=== PATIENT | male | born 1965 | race Caucasian/White ===

== ENCOUNTER 2020-09-19 14:51 | Outpatient (REF) | payer MEDICAID, SELFPAY | END 2020-09-19 14:52 | disposition home or self-care (01) | LOC: HO.LAB 14:51 | PROVIDERS: Visit Provider Internal Medicine | DX: Z20.828 Contact with and (suspected) exposure to other viral communicable diseases (principal) | CPT/HCPCS: 87635 ==

== ENCOUNTER 2024-05-29 09:14 | Outpatient (REF) | payer MEDICAID, SELFPAY ==
[2024-05-29 11:43] LABS: Alanine Aminotransferase 27 U/L (0-40); Albumin Level 4.3 g/dL (3.5-5.0); Alkaline Phosphatase 84 U/L (39-117); Anion Gap 12 (12-20); Aspartate Amino Transferase 23 U/L (5-37); Bilirubin Total 0.2 mg/dL (0.0-1.0); Blood Urea Nitrogen 11 mg/dL (9-16); Calcium 9.7 mg/dL (8.4-10.2); Carbon Dioxide 28 mmol/L (22-29); Chloride 103 mmol/L (96-108); Cholesterol 201 mg/dL (<200); Estimated Glomerular Filt Rate > 60; Glucose Random 186 mg/dL (60-115); HDL Cholesterol 40 mg/dL (>40); LDL Cholesterol Calculated 106 mg/dL (<100); Potassium 4.5 mmol/L (3.3-5.1); Sodium 138 mmol/L (135-145); Total Protein 7.7 g/dL (6.5-8.0); Triglycerides 277 mg/dL (<150)
[2024-05-29 11:46] LABS: TSH reflex Free T4 1.29 uIU/mL (0.32-4.0); Vitamin D 25-OH Total 23.3 ng/mL (>30)
[2024-05-29 11:54] LABS: Vitamin B12 914 pg/mL (200-900)
[2024-05-29 11:58] LABS: Estimated Average Glucose 146 mg/dL; Hemoglobin A1c % 6.7 % (<6.0)
[2024-05-29 15:05] LABS: Hepatitis A Antibody IgG REACTIVE (Nonreactive); ~Hepatitis A Antibody IgG 11.36 S/CO (0.00-0.99)
[2024-05-29 15:34] LABS: HBS Num1 71.46 mIU/mL (0-7.99); HBc Num1 0.13 S/CO (0.00-0.79); HIV AB/AG Nonreactive (Nonreactive); HIV Num 1 0.06 S/CO (0.00-0.99); Hepatitis B Core Antibody Nonreactive (Nonreactive); ~HepC Num1 0.07 S/CO (0.00-0.79); ~Hepatitis B Surface Antibody REACTIVE (Nonreactive); ~Hepatitis C Antibody Nonreactive (Nonreactive)
[2024-05-30 10:58] LABS: RPR Rapid Plasma Reagin NON-REACTIVE (NON-REACTIVE)
[2024-05-31 20:39] LABS: TS Negative Control Passed; TS Panel A 3; TS Panel B 0; TS Positive Control Passed; TSpotTB Negative (Negative)
== END 2024-05-29 09:15 | disposition home or self-care (01) ==
LOC: HO.HHCL 09:14
PROVIDERS: Visit Provider Emergency Medicine
DX: F11.20 Opioid dependence, uncomplicated (principal); E11.9 Type 2 diabetes mellitus without complications; I10 Essential (primary) hypertension
CPT/HCPCS: 36415; 80053; 80061; 82306; 82607; 83036; 84443; 86481; 86592; 86704; 86706; 86708; 86803; 87389

== ENCOUNTER 2024-06-20 12:05 | Emergency (ER) | payer MEDICAID, SELFPAY ==
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
[2024-06-20 12:20] VITALS: BP 204/132; PULSE 105; O2SAT 96
[2024-06-20 12:35] VITALS: BP 147/98; PULSE 99; RESP 18; TEMP 37; O2SAT 98; BMI 30.1
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
[2024-06-20 17:37] VITALS: BP 149/90; PULSE 72; RESP 16; TEMP 36.8; O2SAT 97
[2024-06-20 17:48] LABS: Appearance Urine Clear; Color Urine Yellow; Glucose Urine UA >=1000 mg/dL (Negative); Leukocyte Esterase Urine Negative (Negative); Nitrite Urine Negative (Negative); Specific Gravity - Urine 1.025 (1.005-1.025); UMIC TRIGGER UACC YES; Urine Blood Negative (Negative); Urine Ketones Trace mg/dL (Negative); Urine Protein Negative (Neg-Trace)
[2024-06-20] MEDS: Lidocaine 4 % Patch ADH..PATCH 1 PATCH TRANSDERMA (18:15)
[2024-06-20 18:17] VITALS: BP 159/91; PULSE 78; RESP 18; TEMP 36.6; O2SAT 99
[2024-06-20 18:31] LABS: Bacteria Urine None Seen (None Seen); Hyaline Casts Urine 0-2 /LPF (0-2); RBC Urine 0-2 /HPF (0-2); Squamous Epithelial Cell Urine 0-2 /HPF (0-2); WBC Urine 0-5 /HPF (0-5)
== END 2024-06-20 18:20 | disposition home or self-care (01) ==
PROVIDERS: Registered Nurse Emergency; Emergency Provider Emergency Medicine
DX: S80.02XA Contusion of left knee, initial encounter (principal); V73.6XXA Passenger on bus injured in collision with car, pick-up truck or van in traffic accident, initial encounter; R10.9 Unspecified abdominal pain; E11.9 Type 2 diabetes mellitus without complications; I10 Essential (primary) hypertension; Y93.89 Activity, other specified; Y92.414 Local residential or business street as the place of occurrence of the external cause; Y99.9 Unspecified external cause status
CPT/HCPCS: 73562; 81001; 99283

== ENCOUNTER 2024-06-22 07:53 | Outpatient (REF) | payer MEDICAID, SELFPAY ==
[2024-06-22 11:38] LABS: MANUAL DIFF FLAG NO
[2024-06-22 11:49] LABS: Basophils Percent Auto 0.4 % (0-2); Eosinophils Absolute Auto 0.1 X10*3/uL (0.0-0.4); Eosinophils Percent Auto 1.9 % (0-4); Hematocrit 40.8 % (42.0-52.0); Imm Gran Abs Auto 0.03 X10*3/uL (0.00-0.03); Imm Gran Pct Auto 0.4 % (0.0-0.4); Lymphocytes Absolute Auto 3.1 X10*3/uL (1.2-4.9); Mean Corpuscular HGB Conc 34.3 g/dl (31.0-36.0); Mean Corpuscular Hemoglobin 30.2 pg (27.0-33.0); Mean Corpuscular Volume 87.9 fL (80.0-98.0); Mean Platelet Volume 9.4 fL (9.4-12.4); Monocytes Absolute Auto 0.4 X10*3/uL (0.1-1.2); Neutrophils Absolute Auto 3.3 x10*3/uL (2.0-8.3); Neutrophils Percent Auto 47.3 % (45-73); Platelet Count 239 X10*3/uL (160-400); Red Blood Count 4.64 X10*6/uL (4.60-5.80); Red Cell Distribution Width 13.1 % (11.0-16.0)
== END 2024-06-22 07:54 | disposition home or self-care (01) ==
LOC: HO.HHCL 07:53
PROVIDERS: Visit Provider Nurse Practitioner Primary Care
DX: L74.9 Eccrine sweat disorder, unspecified (principal)
CPT/HCPCS: 36415; 85025

== ENCOUNTER 2024-09-24 18:17 | Outpatient (REF) | payer MEDICAID, SELFPAY ==
[2024-09-24 18:38] LABS: Appearance Urine Clear; Color Urine Yellow; Glucose Urine UA Negative (Negative); Leukocyte Esterase Urine Negative (Negative); Nitrite Urine Negative (Negative); PH 5.5 (5.0-9.0); Specific Gravity - Urine 1.015 (1.005-1.025); Urine Blood Negative (Negative); Urine Ketones Negative (Negative); Urine Protein Negative (Neg-Trace)
[2024-09-24 18:57] LABS: Bacteria Urine None Seen (None Seen); Hyaline Casts Urine 0-2 /LPF (0-2); RBC Urine 0-2 /HPF (0-2); Squamous Epithelial Cell Urine 0-2 /HPF (0-2); WBC Urine 0-5 /HPF (0-5)
== END 2024-09-24 18:18 | disposition home or self-care (01) ==
LOC: HO.HHCLNP 18:17
PROVIDERS: Visit Provider Nurse Practitioner Primary Care
DX: R31.0 Gross hematuria (principal)
CPT/HCPCS: 81001

== ENCOUNTER 2024-09-25 15:29 | Outpatient (REF) | payer MEDICAID, SELFPAY ==
--- NOTE | ~2024-09-25 | US_ITS ---
EXAMINATION: US TRIPLEX LOWER EXTREMITY, LEFT CLINICAL INFORMATION: Swelling and pain COMPARISON: None available. TECHNIQUE: Color-flow triplex imaging with spectral analysis and compression Doppler were performed on the left lower extremity. FINDINGS: Respiratory variation, normal compression and augmented flow are noted throughout the left lower extremity. The visualized common femoral vein, superficial femoral vein, profunda femoral vein, popliteal vein and midcalf peroneal and posterior tibial venous segments show no evidence of deep venous thrombosis. There is no Damon's cyst. US/US venous duplex LE LT IMPRESSION: No evidence of deep venous thrombosis involving the left lower extremity. Electronically signed by: Charly Ty MD 09/25/2024 04:16 PM EDT RP
== END 2024-09-25 15:30 | disposition home or self-care (01) ==
LOC: HO.US 15:29
PROVIDERS: PCP Nurse Practitioner Primary Care; Visit Provider Nurse Practitioner Primary Care
DX: M79.89 Other specified soft tissue disorders (principal); M79.605 Pain in left leg
CPT/HCPCS: 93971

== ENCOUNTER 2024-10-16 09:47 | Outpatient (REF) | payer MEDICAID, SELFPAY ==
--- NOTE | 2024-10-16 09:56 | EMG_ITS ---
Bilateral median and ulnar motor and sensory studies were performed. Bilateral radial and median and lateral antecubital brachial sensory studies were performed and paraspinal muscles were tested with a needle. IMPRESSION: 1. Mild bilateral median neuropathy across carpal tunnel. 2. Mild bilateral ulnar neuropathy across cubital tunnel. MD LUIS Bianchi/STEVEL / [id number]
== END 2024-10-16 09:48 | disposition home or self-care (01) ==
LOC: HO.NEURO 09:47
PROVIDERS: PCP Nurse Practitioner Primary Care; Visit Provider Nurse Practitioner Primary Care
DX: R20.0 Anesthesia of skin (principal); R20.2 Paresthesia of skin
CPT/HCPCS: 95886; 95913

== ENCOUNTER 2024-11-22 15:05 | Outpatient (REF) | payer MEDICAID, SELFPAY ==
[2024-11-22 16:43] LABS: Cholesterol 141 mg/dL (<200); HDL Cholesterol 39 mg/dL (>40); LDL Cholesterol Calculated 70 mg/dL (<100); Triglycerides 164 mg/dL (<150)
[2024-11-22 16:45] LABS: Prostate Specific Antigen 0.62 ng/mL (<0.05-4.0)
[2024-11-22 16:47] LABS: Vitamin D 25-OH Total 44.9 ng/mL (>30)
== END 2024-11-22 15:06 | disposition home or self-care (01) ==
LOC: HO.HHCL 15:05
PROVIDERS: Visit Provider Nurse Practitioner Primary Care
DX: Z12.5 Encounter for screening for malignant neoplasm of prostate (principal); E55.9 Vitamin D deficiency, unspecified; E78.5 Hyperlipidemia, unspecified; R31.0 Gross hematuria
CPT/HCPCS: 36415; 80061; 82306; 84153

== ENCOUNTER 2024-12-24 15:44 | Outpatient (AMB) | payer MEDICAID, SELFPAY ==
--- NOTE | 2024-12-24 15:46 | MHC.OFFVIS ---
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 EMG was done on 10/16/2024. Patient states ongoing numbness for about 5 years. He mentions that his whole hand gets numb not just his fingers, also both of his hands feel heavy when they are numb. Patient informs me that his right hand is worse than the left. Numbness is worse at night as per patient, however sometimes through out the day. He expresses that if he needs CTR surgery he would like to start with the left. IMPRESSION: 1. Mild bilateral median neuropathy across carpal tunnel. 2. Mild bilateral ulnar neuropathy across cubital tunnel. Commercial Food Instructor Required: Yes Commercial Food Instructor Language: Urban Designer Services: Commercial Food Instructor Present Commercial Food Instructor Name: AdanYANELI zhou/DAYA Information Interpreted: clinical only Allergies No Known Allergies [No Known Allergies*] Allergy (Verified 12/24/24 15:51) HPI HPI SUPERVISOR FRONT-B/L carpal tunnel syndrome: Details: Patient is a 59 year old right hand dominant male who presents today as a new patient for bilateral carpal tunnel syndrome. EMG was done on 10/16/2024. Patient states ongoing numbness for about 5 years. He mentions that his whole hand gets numb not just his fingers, also both of his hands feel heavy when they are numb. Patient informs me that his right hand is worse than the left. Numbness is worse at night as per patient, however sometimes through out the day. He expresses that if he needs CTR surgery he would like to start with the left. IMPRESSION: 1. Mild bilateral median neuropathy across carpal tunnel. 2. Mild bilateral ulnar neuropathy across cubital tunnel. [facility] Medical History Opiate use Diabetes HTN (hypertension) Social History (Updated 12/24/24 @ 15:54 by Thomas Parada) Alcohol intake: never Patient Tobacco Use Status: Current someday Tobacco user Cigarettes Per Day: 4 Current occupational status: retired Current occupation: right hand dominant Physical Exam Vital Signs: BMI result Body Mass Index 30.1 Extrem Other: Neuro: Normal sensation of the tips of all digits today No thenar or intrinsic wasting. Good APB muscle firing and good finger cross. Vascular: Capillary refill brisk. ROM: Patient can make a fist and extend all their digits. Skin: No lacerations or abrasions noted. General: No ecchymosis. No erythema or evidence of infection. [] Assessment & Plan Assessment & Plan (1) Bilateral carpal tunnel syndrome: Code(s): G56.03 - Carpal tunnel syndrome, bilateral upper limbs Category: Medical (2) Cubital tunnel syndrome, bilateral: Code(s): G56.23 - Lesion of ulnar nerve, bilateral upper limbs Category: Medical Plan 1. Cubital tunnel syndrome, right 2. Carpal tunnel syndrome, right Intermittent, daily, worse at night I educated the patient about the condition. I discussed both operative and nonoperative treatment options. The patient would like to proceed with surgery. The risks and benefits of operative treatment were discussed with the patient and the patient wishes to proceed with surgery. These risks include, but are not limited to, risk of damage to blood vessels, nerves, tendons, infection, recurrence, incomplete relief of preoperative symptoms, persistent pain, possible need for further surgery, and the risks associated with regional blocks and/or anesthesia. Plan is to take the patient to the operating room at some point in the next few weeks for the following procedures: 1. Right cubital tunnel release under general 2. Right carpal tunnel release under general All of the preoperative paperwork including the consent was discussed today. All of the patient's questions were answered in the clinic today. The patient understands that they will be in contact with our surgical services coordinator to discuss scheduling their procedure. Patient reports diabetes, last known A1c 6.4 but this was approximately 6 months ago, we will need new A1c prior to surgery Denies blood thinners, asthma, heart issues, lung issues, kidney issues, or current smoking. 3. Cubital tunnel syndrome, left 4. Carpal tunnel syndrome, left Patient states he would like to proceed with right-sided surgery prior to any operative intervention of the left Patient was educated that due to the fact he is undergoing general anesthesia for this case, he will be a minimum of 3 months before he can get signed up for left-sided surgery Patient was amenable to this plan Patient was informed that he will likely require preoperative follow-up because his surgery Will likely need more than 1 month patient was amenable this is plan Coding Level of Care Code New Pt Level 4 (94043) Diagnoses Bilateral carpal tunnel syndrome G56.03 Cubital tunnel syndrome, bilateral G56.23
[2024-12-24 15:54] VITALS: BMI 30.1
--- OUTSIDE RECORDS SUMMARY | 2024-12-24 19:37 | XMS_ITS | Encounter Summary ---
Author Organization [employer] Address [address] [place] [address] Care Team Providers Care Nanotechnology Technician Name Role Phone Lizzette Lacey ANITHA Primary Care Provider [phone] Reason for Visit * Reason Comments [facility] Recovery Supports Encounter Details Date Type Department Care Team (Late st Contact Info) Description 12/10/2024 Patient Outreach [facility] MEDICINE [address], [place] [id number] Vikash Beth [address] [place] [address] [facility] Recovery Supports Social History Tobacco Use Types Packs/Day Years Used Date Smoking Tobacco: Every Day Cigarettes Smokeless Tobacco: Never Depression Answer Date Recorded Patient Health Questionnaire-9 Score 12 09/25/2024 Patient Health Questionnaire-9 Score 12 09/25/2024 Last PHQ-9: Questionnaire Data Not on file 1 Housing Stability Answer Date Recorded What is your housing situation today? I do not have housing (Staying with others, in a hotel, in a snf, living outside on the street, on a beach, in a car, or in a park 09/12/[address] you li ve. Do you have problems with any of the following? Pests such as bugs, ants, or mice 09/12/2024 Food Insecurity Answer Date Recorded Within the past 12 months, y ou worried that your food would run out before you got money to buy more: Sometimes True 2023 Within the past 12 months,th e food you bought just didn't last and you didn't have enough money to get more: Sometimes True 09/12/2024 Transportation Answer Date Recorded In the past 12 months, has l ack of transportation kept you from medical appts, meetings, work or from getting things needed for daily living? Yes, it has kept me from medical appointments or getting medications. 09/12/2024 Utilities Answer Date Recorded In the past 12 months, has t he electric, gas, oil or water company threatened to shut off services in your home? No 09/12/2024 Depression Answer Date Recorded Patient Health Questionnaire-2 Score 4 09/25/2024 Internet Access Answer Date Recorded Internet Access Q1 Yes 09/12/2024 Internet Access Q2 Not on file 09/12/2024 Sex and Gender Information Value Date Recorded Sex Assigned at Male 09/27/2022 10:36 AM EDT Legal Sex Male 10:36 AM EDT Gender Identity Male 09/27/2022 10:36 AM EDT Sexual Orientation Don't know 09/27/2022 10 :36 AM EDT documented as of this encounter Progress Notes * Vikash Kirit - 12/10/2024 1:50 PM EST I met with Romeo today. Setting: in person at [facility] Recovery Wellness Goals worked on: Social Stability Action taken/next steps: Offered person centered recovery support and Attended alcohol and drug free activity Additional comments: Recovery Center Vikash Kirit documented in this encounter Plan of Treatment Upcoming Encounters Date Type Department Care Team (Late st Contact Info) Description 01/10/2025 1:00 PM EST Office Visit [address] [phone] Lizzette Lacey ANP [address] [place] [phone] 02/11/2025 1:00 PM EDT Clinical Support [address] [address] Jeniffer Fernandez RN documented as of this encounter Visit Diagnoses Not on filedocumented in this encounter Additional Health Concerns Assessment Noted Time PHQ-9 Depression Total Score: 12 024 9:19 AM EDT documented as of this encounter Care Teams Nanotechnology Technician Relationship Specialty Start Date End Date Lizzette Lacey ANP [address] [place] [phone] PCP - General Family Medicine 12/07/19 documented as of this encounter
--- OUTSIDE RECORDS SUMMARY | 2024-12-24 19:37 | XMS_ITS | Encounter Summary ---
Author Organization [facility] Address [address] [place] [address] Care Team Providers Care Yarn Rewinder Name Role Phone Sarita Wang Primary Care Provider [phone] Reason for Referral * Consultation (Routine) - Authorized Specialty Diagnoses / Procedures Referred By Sean aparicio Referred To Contact Hand Surgery Diagnoses Bilateral carpal tunnel syndrome Ulnar neuropathy of both upper extremities Sarita Wang ANP [address] [place] [address] Phone: tel: fax: [facility] Orthopedics [address] [place] [address] Phone: tel: Referral ID Status Reason Start Date Expiration Date Visits Requested Visits Authorized [id number] Authorized Specialty Services Required 12/05/2024 12/05/2025 6 6 Encounter Details Date Type Department Care Team (Late st Contact Info) Description 12/05/2024 Orders Only [facility] MEDICINE [address] [place] [address] Sarita Wang ANP [address] [place] [address] Bilateral carpal tunnel syndrome (Primary Dx); Ulnar neuropathy of both upper extremities Social History Tobacco Use Types Packs/Day Years [...] with others, in a hotel, in a group home, living outside on the street, on a [...] as of this encounter Progress Notes * ANITHA Sen - 12/05/2024 9:48 AM EST IMPRESSION: 1. Mild bilateral median neuropathy across carpal tunnel. 2. Mild bilateral ulnar neuropathy across cubital tunnel. Patient: Romeo Agarwal MR#: [id number] : 1965 Acct:[id number] Age/Sex: 59 / M ADM Date: 10/16/24 Loc: HO.NEURO Attending Dr: Sarita Wang NP Ordering Physician: SARITA WANG NP Date of Service: 10/16/24 Procedure(s): NE electromyogram (EMG) Accession Number(s): [id number] cc: SARITA WANG [employer] Bilateral median and ulnar motor and sensory studies were performed. Bilateral radial and median and lateral antecubital brachial sensory studies were performed and paraspinal muscles were tested with a needle. IMPRESSION: 1. Mild bilateral median neuropathy across carpal tunnel. 2. Mild bilateral ulnar neuropathy across cubital tunnel. MD LUIS Bianchi/DESHAUN documented in this encounter Plan of Treatment Upcoming Encounters Date Type Department Care Team (Late st Contact Info) Description 01/10/2025 1:00 PM EST Office Visit [address] [phone] Sarita aWng ANP [address] [place] [phone] 02/11/2025 1:00 PM EDT Clinical Support [address] [address] Jeniffer Fernandez, RN Scheduled Referrals Name Type Priority Associated Diagnoses Orde r Schedule Referral to Hand Surgery Outpatient Referral Routine Bilateral carpal tunnel syndrome Ulnar neuropathy of both upper extremities Expected: 12/05/2024 (Approximate), Expires: 12/05/2025 documented as of this encounter Visit Diagnoses Diagnosis Bilateral carpal tunnel syndrome- Primary Carpal tunnel syndrome Ulnar neuropathy of both upper extremities documented in this encounter Additional Health Concerns Assessment Noted Time PHQ-9 Depression Total Score: 12 024 9:19 AM EDT documented as of this encounter Care Teams Yarn Rewinder Relationship Specialty Start Date End Date Sarita Wang ANP [address] [place] [phone] PCP - General Family Medicine 12/07/19 documented as of this encounter
--- OUTSIDE RECORDS SUMMARY | 2024-12-24 19:37 | XMS_ITS | Encounter Summary ---
Author Organization [employer] [facility] Address [address] 7[address] [place] [address] Care Team Providers Care Script Developer Name Role Phone Lizzette Lacey Primary Care Provider [phone] Encounter Details Date Type Department Care Team (Late st Contact Info) Description 12/07/2024 Telephone [facility] [address] [place], [place] [phone] Lizzette Lacey ANP [address] [place], [place] [phone] Social History Tobacco Use Types Packs/Day Years [...] with others, in a hotel, in a fci, living outside on the street, on a [...] AM EDT documented as of this encounter Plan of Treatment Upcoming Encounters Date Type Department Care Team (Late st Contact Info) Description 01/10/2025 1:00 PM EST Office Visit [address] [address] Lizzette Lacey ANP [address] [place] [phone] 02/11/2025 1:00 PM EDT Clinical Support [address] [address] Jeniffer Fernandez RN documented as of this encounter Visit Diagnoses Not on filedocumented in this encounter Additional Health Concerns Assessment Noted Time PHQ-9 Depression Total Score: 12 024 9:19 AM EDT documented as of this encounter Care Teams Script Developer Relationship Specialty Start Date End Date Lizzette Lacey ANP [address] [place] [phone] PCP - General Family Medicine 12/07/19 documented as of this encounter
--- OUTSIDE RECORDS SUMMARY | 2024-12-24 19:37 | XMS_ITS | Encounter Summary ---
Author Organization [employer] [facility] Address [address] [place] [address] Care Team Providers Care Transverse Abdominal Muscle Surgeon Name Role Phone Lizzette Lacey ANITHA Primary Care Provider [phone] Reason for Visit * Reason Onset Date Comments Med Refill 11/30/2024 Encounter Details Date Type Department Care Team ([facility] st Contact Info) Description 11/30/2024 Refill [facility] [address] [place] [address] Jeniffer Fernandez RN Uncomplicated opioid dependence (CMS/HCC) Social History Tobacco Use Types Packs/Day Years [...] with others, in a hotel, in a care home, living outside on the street, on [...] Description 01/10/2025 1:00 PM EST Office Visit [address] [address] Lizzette Lacey ANP [address] [place] [address] 02/11/2025 1:00 PM EDT Clinical Support [address] [address] Jeniffer Fernandez RN documented as of this encounter Visit Diagnoses Diagnosis Uncomplicated opioid dependence (CMS/HCC) documented in this encounter Additional Health Concerns Assessment Noted Time PHQ-9 Depression Total Score: 12 024 9:19 AM EDT documented as of this encounter Care Teams Transverse Abdominal Muscle Surgeon Relationship Specialty Start Date End Date Lizzette Lacey ANP [address] [place] [phone] PCP - General Family Medicine 12/07/19 documented as of this encounter
--- OUTSIDE RECORDS SUMMARY | 2024-12-24 19:37 | XMS_ITS | Encounter Summary ---
Author Organization [employer] [facility] Address [address] 7[address] [place] [address] Care Team Providers Care Glass Pulverizer Equipment Operator Name Role Phone Lizzette Lacey ANITHA Primary Care Provider Encounter Details Date Type Department Care Team (Late st Contact Info) Description 12/05/2024 Telephone [facility] [address] [place] [address] Vanessa Mcdermott RN Social History Tobacco Use Types Packs/Day Years [...] with others, in a hotel, in a residential, living outside on the street, on a [...] AM EDT documented as of this encounter Miscellaneous Notes * Telephone Encounter - Vanessa Mcdermott RN - 12/05/2024 10:12 AM EST Call placed to patient. 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 Informed patient that his PCP sent a referral to a hand specialist. All questions answered. Patient verbalizes understanding and agreement with plan of care at this time. [employer] interpretor [place] Cristian [id number] ----- Message from Lizzette Lacey sent at 12/05/2024 9:51 AM EST ----- Please let pt know, am referring him to hand specialist for eval/treatment for his hand numbness and pain. 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 This is compression of 2 different nerves in his wrists that are consistent with his symptoms. documented in this encounter Plan of Treatment Upcoming Encounters Date Type Department Care Team (Late st Contact Info) Description 01/10/2025 1:00 PM EST Office Visit [facility] [address] [place] [phone] Lizzette Lacey ANP [address] [place] [address] 02/11/2025 1:00 PM EDT Clinical Support [address] [address] Jeniffer Fernandez, RN documented as of this encounter Visit Diagnoses Not on filedocumented in this encounter Additional Health Concerns Assessment Noted Time PHQ-9 Depression Total Score: 12 024 9:19 AM EDT documented as of this encounter Care Teams Glass Pulverizer Equipment Operator Relationship Specialty Start Date End Date Lizzette Lacey ANP [address] [place] [address] PCP - General Family Medicine 12/07/19 documented as of this encounter
--- OUTSIDE RECORDS SUMMARY | 2024-12-24 19:38 | XMS_ITS | Encounter Summary ---
Author Organization [employer] [facility] Address [address]t [place] [address] Care Team Providers Care Human Services Supervisor Name Role Phone Lizzette Lacey Primary Care Provider [phone] Encounter Details Date Type Department Care Team (Late st Contact Info) Description 11/09/[address] [facility] [address] [place] [address] Genie Jimenez LPN Social History Tobacco Use Types Packs/Day Years Used Date Smoking Tobacco: Never Assessed Sex and Gender Information Value Date Recorded Sex Assigned at Male 09/27/2022 10:36 AM EDT Legal Sex Male 10:36 AM EDT Gender Identity Male 09/27/2022 10:36 AM EDT Sexual Orientation Don't know 09/27/2022 10 :36 AM EDT documented as of this encounter Plan of Treatment Upcoming Encounters Date Type Department Care Team (Late st Contact Info) Description 01/10/2025 1:00 PM EST Office Visit [address] [address] Lizzette Lacey ANP [address] [place] [address] 02/11/2025 1:00 PM EDT Clinical Support [address] [address] Jeniffer Fernandez RN documented as of this encounter Visit Diagnoses Not on filedocumented in this encounter Care Teams Human Services Supervisor Relationship Specialty Start Date End Date Lizzette Lacey ANP [address] [place] [phone] PCP - General Family Medicine 12/07/19 documented as of this encounter
--- OUTSIDE RECORDS SUMMARY | 2024-12-24 19:38 | XMS_ITS | Encounter Summary ---
Author Organization [employer] [facility] Address [address] 7t [place] [address] Care Team Providers Care Jigmaker Name Role Phone Lizzette Lacey Primary Care Provider [phone] Encounter Details Date Type Department Care Team (Late st Contact Info) Description 04/04/2023 Orders Only [facility] [address] [place] [address] Odalis Kitchen LPN Social History Tobacco Use Types Packs/Day [...] Description 01/10/2025 1:00 PM EST Office Visit [address] [address] Lizzette Lacey ANP [address] [place] [address] 02/11/2025 1:00 PM EDT Clinical Support [facility] [address] [place] [phone] Jeniffer Fernandez RN documented as of this encounter Visit Diagnoses Not on filedocumented in this encounter Care Teams Jigmaker Relationship Specialty Start Date End Date Lizzette Lacey ANP [address] [place] [phone] PCP - General Family Medicine 12/07/19 documented as of this encounter
--- OUTSIDE RECORDS SUMMARY | 2024-12-24 19:38 | XMS_ITS | Encounter Summary ---
Author Organization [email or web address] [facility] Address [address] 7t [place] [address] Care Team Providers Care Firebreak Cutter Name Role Phone Lizzette Lacey Primary Care Provider [phone] Reason for Visit * Reason Comments Med Refill Encounter Details Date Type Department Care Team (Late st Contact Info) Description 07/20/2024 Refill [facility] [address] [place] [address] [phone] Francheska Boyer MD [address] [place] [address] [phone] Opioid type dependence, continuous (CMS/[facility]) Social History Tobacco Use Types Packs/Day Years Used Date Smoking Tobacco: Every Day Cigarettes Smokeless Tobacco: Never Depression Answer Date Recorded Patient Health Questionnaire-9 Score 10 07/09/2024 Patient Health Questionnaire-9 Score 10 07/09/2024 Last PHQ-9: Questionnaire Data Not on file 0 07/09/2024 Depression Answer Date Recorded Patient Health Questionnaire-2 Score 4 07/09/2024 Sex and Gender Information Value Date Recorded Sex Assigned at Male 09/27/2022 10:36 AM EDT Legal Sex Male 10:36 AM EDT Gender Identity Male 09/27/2022 10:36 AM EDT Sexual Orientation Don't know 09/27/2022 10 :36 AM EDT documented as of this encounter Plan of Treatment Upcoming Encounters Date Type Department Care Team (Late st Contact Info) Description 01/10/2025 1:00 PM EST Office Visit [facility] [address] [place] [phone] Lizzette Lacey ANP [address] [place] [phone] 02/11/2025 1:00 PM EDT Clinical Support [facility] [address] [place] [address] Jeniffer Fernandez RN documented as of this encounter Visit Diagnoses Diagnosis Opioid type dependence, continuous (CMS/HCC) Opioid type dependence, continuous documented in this encounter Additional Health Concerns Assessment Noted Time PHQ-9 Depression Total Score: 10 024 2:58 PM EDT documented as of this encounter Care Teams Firebreak Cutter Relationship Specialty Start Date End Date Lizzette Lacey ANP [address] [place] [address] PCP - General Family Medicine 12/07/19 documented as of this encounter
--- OUTSIDE RECORDS SUMMARY | 2024-12-24 19:38 | XMS_ITS | Clinical Summary ---
Author Organization [facility] Address [address] [facility] 7t [place] [address] Care Team Providers Care Slab Puller Name Role Phone Sarita Wang ANITHA Primary Care Provider [phone] Allergies Active Allergy Reactions Criticality Noted Date Comments Shellfish Allergy 08/11/2021 Medications * This document contains information received from the source organization and may not represent a complete record from that organization. famotidine (Pepcid) 20 MG tabletIndications :Heartburn TAKE 1 TABLET BY MOUTH EVERY DAY 90 tablet 1 023 Active fluticasone (Flonase) 50 MCG/ACT nasal sprayIndications: Non-seasonal allergic rhinitis due to other allergic trigger USE 2 SPRAYS IN EACH NOSTRIL EVERY DAY 48 g 1 023 Active naloxone (Narcan) 4 mg/0.1 mL nasal sprayIndications: Opioid type dependence, continuous (CMS/HCC) Administer 1 spray (4 mg) into affected nostril(s) if needed for opioid reversal. May repeat every 2-3 minutes if needed, alternating nostrils, until medical assistance becomes available. 2 each 024 2024 Active Blood Pressure kit 1 each 2 times daily. 1 kit 024 2024 Active buprenorphine-nal oxone (Suboxone) 12-3 MG per sublingual filmIndications:O pioid type dependence, continuous (CMS/HCC) Place 1 Film under the tongue Once per day for 7 days. Do not start before May 24, 2024. 7 Film 024 Active FREESTYLE LITE test stripIndications: Type 2 diabetes mellitus without complication, without long-term current use of insulin (CMS/HCC) Use to test blood sugar 3 times daily 100 each 12 024 2024 Active Blood Glucose Monitoring Suppl (FreeStyle Buffalo Lite) w/Device kitIndications:Ty pe 2 diabetes mellitus without complication, without long-term current use of insulin ([facility]) Use to test blood sugar 3 times daily 1 kit Active buprenorphine ER (Sublocade) 100 mg/0.5mL injectionIndicati ons:Uncomplicated opioid dependence ([facility]) Inject 0.5 mL (1 each) under the skin every month to absorb continually. 0.5 mL 5 024 2024 Active aspirin 81 MG EC tabletIndications :Cardiovascular event risk,Dyslipidemia Take 1 tablet (81 mg) by mouth Once per day. 90 tablet 1 024 2024 Active Alcohol Swabs (Alcohol Prep) 70 % padsIndications:T ype 2 diabetes mellitus without complication, without long-term current use of insulin ([facility]) USE DIRECTED TO TEST BLOOD SUGAR THREE TIMES DAILY 100 each 5 Active TRUEplus Lancets 33G miscIndications:T ype 2 diabetes mellitus without complication, without long-term current use of insulin ([facility]) USE DIRECTED TO TEST BLOOD SUGAR THREE TIMES DAILY 100 each 5 Active atorvastatin (Lipitor) 20 MG tabletIndications :Hyperlipidemia, unspecified hyperlipidemia type Take 1 tablet (20 mg) by mouth Once per day. 90 tablet 1 Active prazosin (Minipress) 1 MG capsuleIndication s:Nightmare TAKE 1 TO 2 CAPSULES BY MOUTH AT BEDTIME 90 capsule 1 024 Active metFORMIN XR (Glucophage-XR) 500 MG 24 hr tabletIndications :Hypertension associated with diabetes ([facility]/HCC) ([facility]) Take 2 tablets (1,000 mg) by mouth with evening meal. Do not crush, chew, or split. 180 tablet 1 Active psyllium (Metamucil Free & Natural) 43 % powderIndications :Constipation, unspecified constipation type 1 tsp TID in water, increase as tolerated up to 1 TBL twice daily 538 g 5 024 Active Buprenorphine HCl-Naloxone HCl (Suboxone) 8-2 MG SL filmIndications:U ncomplicated opioid dependence ([facility]) Place 1 Film under the tongue if needed each day for withdrawal for up to 28 days. 28 Film 025 2024 Active Buprenorphine HCl-Naloxone HCl (Suboxone) 8-2 MG SL filmIndications:U ncomplicated opioid dependence (CMS/HCC) Place 1 Film under the tongue if needed each day for withdrawal for up to 28 days. 28 Film 024 2024 Discontinued(R eorder (will not trigger notification to Pharmacy)) Active Problems Problem Noted Date Diagnosed Date Ulnar neuropathy of both upper extremities 12/05 Bilateral carpal tunnel syndrome 12/05/2024 Anxiety 06/21/2024 Assessment & Plan (09/25/2024 9:38 AM EDT): During IBH Consult Romeo presenting with excessive worry/anxiety, difficulty controlling worry, and anxiety/worry associated to restlessness and/or feeling keyed-up/On edge , easily fatigued , difficulty concentrating and/or mind going blank , irritability, muscle tension , and sleep disturbance difficulty falling asleep and difficulty staying asleep ; for a period of 0-6 mo, for most or all symptoms in the context of financial concern and housing. Romeo carries a diagnosis for Substance Use Disorder. Reported increase of anxiety and not being able to self-regulate. We practiced breathing exercises during session and made recommendations about anxiety. Romeo is currently living with his uncle. Reports he applied to low-income housing and is currently on wait list. During today's consult Romeo was engaged with active, reflective listening and validation of emotions. Reviewed and assessed for risk, current stressors and protective factors. Romeo will continue OP therapy services with [facility] (his next appt will be on 09/26); pt will request referral for psychiatry within [facility]. clinician will be available if needed during next medical appointment. Assessment & Plan (06/26/2024 3:19 PM EDT): During IBH Consult Romeo presenting with depressed mood, loss of interests/pleasure , changes in sleep difficulty staying asleep , change in appetite or weight overeating, psychomotor retardation, trouble concentrating, fatigue/loss of energy, inappropriate guilt , hopelessness and excessive worry/anxiety, difficulty controlling worry, restless/keyed up/On edge, easily fatigued, difficulty concentrating/Mind going blank , irritability, and sleep disturbance difficulty staying asleep ; for a period of 0-6 mo, for all symptoms in the context of financial concern, employment concern, and being released from senior care two months ago. Romeo is having a difficult time transitioning to the community after being incarcerated. He carries a diagnosis for Substance Use Disorder and is currently engaged with [facility] (Dr. Ríos). Romeo stays in a residential program with [employer] and has no services in place. He identifies his children as main support and strength. During today's consult, Romeo was engaged with active, reflective listening and validation of emotions. Reviewed and assessed for risk, current stressors and protective factors. Romeo was given different options for MH services. He prefers to utilize [facility]/ [place] /OP clinic for walk-in appointments and follow-up with clinician during next medical appointment. PLAN: (check all that apply) New/Additional Services needed On-site non-integrated services Off-site services for Behavioral Health Integration Plan Internal Follow up with [facility] External [facility]-referred to [facility] their [facility] Patient Self Plan Patient to utilize skills provided in intervention , Patient to [facility] team as needed, Comply with medication , Patient to engage in OP therapy , and Patient to reach out to [facility] as needed Adjustment disorder with depressed mood 05/17/20 Assessment & Plan (07/09/2024 3:09 PM EDT): During IBH Consult Romeo presenting with depressed mood, loss of interests/pleasure , changes in sleep difficulty staying asleep , trouble concentrating, thoughts of worthlessness or guilt, fatigue/loss of energy, inappropriate guilt , hopelessness, difficulty concentrating; for a period of 0-6 mo, for all symptoms in the context of financial concern, employment concern, and being released from senior care two months ago. Romeo carries a diagnosis for Substance Use Disorder and is currently engaged with [facility] groups at [facility]. Romeo lives in a residential program with [employer]. Pt was able to connect with [facility]/[place] and requested MH services (OP therapy and medication management). During today's consult, Romeo was engaged with active, reflective listening and validation of emotions. Reviewed and assessed for risk, current stressors and protective factors. Romeo was given different options for MH services. Romeo will continue services with [facility], [facility] and [facility]. clinician will be available if needed during next medical appointment. PLAN: (check all that apply) Continue with current services (defined as services in the past 12 months) Behavioral Health Integration Plan Patient Self Plan Patient to utilize skills provided in intervention , Patient to reach out to [facility] team as needed, Comply with medication , Patient to engage in OP therapy , and Patient to reach out to [facility] as needed. Pt followed recommendations made during last visit and requested intake appointment at [facility]. He is now connected with therapist and psychiatry will follow services within [facility] per patient's report. Assessment & Plan (06/26/2024 3:19 PM EDT): During IB Consult Romeo presenting with depressed mood, loss of interests/pleasure , changes in sleep difficulty staying asleep , change in appetite or weight overeating, psychomotor retardation, trouble concentrating, fatigue/loss of energy, inappropriate guilt , hopelessness and excessive worry/anxiety, difficulty controlling worry, restless/keyed up/On edge, easily fatigued, difficulty concentrating/Mind going blank , irritability, and sleep disturbance difficulty staying asleep ; for a period of 0-6 mo, for all symptoms in the context of financial concern, employment concern, and being released from senior care two months ago. Romeo is having a difficult time transitioning to the community after being incarcerated. He carries a diagnosis for Substance Use Disorder and is currently engaged with [facility] (Dr. Ríos). Romeo stays in a residential program with [employer] and has no services in place. He identifies his children as main support and strength. During today's consult, Romeo was engaged with active, reflective listening and validation of emotions. Reviewed and assessed for risk, current stressors and protective factors. Romeo was given different options for MH services. He prefers to utilize [facility] /OP clinic for walk-in appointments and follow-up with clinician during next medical appointment. PLAN: (check all that apply) New/Additional Services needed On-site non-integrated services Off-site services for Behavioral Health Integration Plan Internal Follow up with [facility] External Self-referred to [facility] for their OP Clinic Patient Self Plan Patient to utilize skills provided in intervention , Patient to reach out to [facility] team as needed, Comply with medication , Patient to engage in OP BH therapy , and Patient to reach out to [facility] as needed Opioid dependence, uncomplicated 05/14/2024 Assessment & Plan (06/26/2024 3:19 PM EDT): During IBH Consult Romeo presenting with depressed mood, loss of interests/pleasure , changes in sleep difficulty staying asleep , change in appetite or weight overeating, psychomotor retardation, trouble concentrating, fatigue/loss of energy, inappropriate guilt , hopelessness and excessive worry/anxiety, difficulty controlling worry, restless/keyed up/On edge, easily fatigued, difficulty concentrating/Mind going blank , irritability, and sleep disturbance difficulty staying asleep ; for a period of 0-6 mo, for all symptoms in the context of financial concern, employment concern, and being released from senior care two months ago. Romeo is having a difficult time transitioning to the community after being incarcerated. He carries a diagnosis for Substance Use Disorder and is currently engaged with [facility] (Dr. Ríos). Romeo stays in a residential program with [employer] and has no services in place. He identifies his children as main support and strength. During today's consult, Romeo was engaged with active, reflective listening and validation of emotions. Reviewed and assessed for risk, current stressors and protective factors. Romeo was given different options for services. He prefers to utilize [facility]/ [place] /OP clinic for walk-in appointments and follow-up with clinician during next medical appointment. PLAN: (check all that apply) New/Additional Services needed On-site non-integrated services Off-site services for Behavioral Health Integration Plan Internal Follow up with [facility] External Self-referred to [facility] for their OP Clinic Patient Self Plan Patient to utilize skills provided in intervention , Patient to reach out to [facility] team as needed, Comply with medication , Patient to engage in OP BH therapy , and Patient to reach out to [facility] as needed Tobacco dependence 05/14/2024 Type 2 diabetes mellitus wit hout complication, without long-term current use of insulin 05/14/2024 Hypertension 05/14/2024 Encounters * This document contains information received from the source organization and may not represent a complete record from that organization. Date Type Department Care Team Description 12/10/2024 Patient Outreach [facility] [address] [place], [place] [address] [address] Vikash Beth Recovery Supports 12/07/2024 Telephone [facility] [place] [address] Sarita Wang ANP 12/05/2024 Telephone [facility] [address] [place] [phone] Vanessa Mcdermott RN 12/05/2024 Orders Only [facility] [address] [place], [place] [address] [address] Sarita Wang ANP Bilateral carpal tunnel syndrome (Primary Dx); Ulnar neuropathy of both upper extremities 11/30/2024 Refill [facility] [address] [place], [place] [address] [address] Jeniffer Fernandez RN Uncomplicated opioid dependence (CMS/HCC) 11/22/[address] [address] Arturo Wagner MA December recall 11/19/2024 1:00 PM EST Office Visit [facility] [address] [place], [place] [address] [address] Genaro Ríos MD Uncomplicated opioid dependence (CMS/HCC) (Primary Dx); Constipation, unspecified constipation type 11/19/2024 Telephone [facility] [address] [place], [place] [address] [address] Genaro Ríos MD Med Refill 11/19/2024 Patient Outreach [address] [address] Vikash Beth Recovery Supports 11/19/2024 Refill [facility] [address] [place], [place] [address] [address] Jeniffer Fernandez RN Uncomplicated opioid dependence (CMS/HCC) 11/19/2024 Travel 11/17/2024 Telephone [facility] [address] [place], [place] [address] [address] Cierra Mercado RN Medication Instructions 11/16/2024 Refill [facility] [address] [place] [phone] Sarita Wang ANP Type 2 diabetes mellitus without complication, without long-term current use of insulin (CMS/HCC) (Primary Dx); Hyperlipidemia, unspecified hyperlipidemia type; Nightmare; Hypertension associated with diabetes (CMS/HCC) ([facility]/HCC) 11/13/2024 Refill [facility] [address] [place] [address] Jeniffer Fernandez RN Uncomplicated opioid dependence ([facility]/HCC) 11/13/2024 Refill [facility] [address] [place] [address] Jeniffer Fernandez RN Uncomplicated opioid dependence ([facility]/HCC) 11/09/2024 Patient Outreach [facility] [address] [place] [address] Alyssa Bustamante Recovery Supports 11/06/2024 Refill [facility] [address] [place] [address] Sarita Wang ANP Type 2 diabetes mellitus without complication, without long-term current use of insulin ([facility]) 10/22/2024 1:45 PM EST Clinical Support [facility] [address] [place] [phone] Jeniffer Fernandez RN Uncomplicated opioid dependence ([facility]/HCC) (Primary Dx) 10/22/2024 Refill [facility] [address] [place] [phone] Jeniffer Fernandez RN Uncomplicated opioid dependence ([facility]/HCC) 10/22/2024 Refill [facility] [address] [place] [phone] Jeniffer Fernandez RN Uncomplicated opioid dependence ([facility]/HCC) 10/22/2024 Travel 10/04/2024 Patient Outreach [facility] [address] [place] [phone] Jovani Clancy 09/27/2024 11:30 AM EDT Clinical Support [facility] [address] [place] [phone] Garrett Roe RN Uncomplicated opioid dependence ([facility]/HCC) (Primary Dx) 09/27/2024 Refill [facility] [address] [place] [phone] Garrett Roe RN Uncomplicated opioid dependence ([facility]CC) 09/27/2024 Travel 09/24/2024 1:30 PM EDT Office Visit [facility] [address] [place] [address] Sarita Wang ANP Hypertension associated with diabetes (CMS/HCC) (CMS/HCC) (Primary Dx); Hypertension, unspecified type; Gross hematuria; Cardiovascular event risk; Dyslipidemia; Vitamin D deficiency; Screening for malignant neoplasm of colon; Encounter for immunization; Left leg swelling; Numbness and tingling in both hands; Constipation, unspecified constipation type 09/24/2024 Travel from Last 3 Months Immunizations Name Administration Dates Next Due Influenza injectable quadriv alent IIV4 with preservative 12/07/2019,11/23/2018 Influenza injectable quadrivalent preservative f ree 12/18/2020 Influenza, IIV3, injectable 11/23/2018 Influenza, seasonal, injectable, preservative fr ee 09/24/2024 Pneumococcal Polysaccharide PPSV23 12/18/2020 Tdap 01/15/2024,11/23/2018 Social History Tobacco Use Types Packs/Day Years Used Date Smoking Tobacco: Every Day Cigarettes Smokeless Tobacco: Never Tobacco Cessation:Ready to Q uit: Not Asked; Counseling Given: Not Answered Depression Answer Date Recorded Patient Health Questionnaire-9 Score 12 09/25/2024 Patient Health Questionnaire-9 Score 12 09/25/2024 Last PHQ-9: Questionnaire Data Not on file 1 Housing Stability Answer Date Recorded What is your housing situation today? I do not have housing (Staying with others, in a hotel, in a longterm, living outside on the street, on a [...] Don't know 09/27/2022 10 :36 AM EDT Last Filed Vital Signs Vital Sign Reading Time Taken Comments Blood Pressure 142/87 09/24/2024 1:54 PM EDT Pulse 105 09/24/2024 1:54 PM EDT Temperature 36.8 ??C (98.3 ??F) 09/24/2024 1:54 PM ED T Respiratory Rate 16 09/24/2024 1:54 PM EDT Oxygen Saturation 98% 09/24/2024 1:54 PM EDT Inhaled Oxygen Concentration - - Weight 92.4 kg (203 lb 9.6 oz) 09/24/2024 1:54 P M EDT Height 172.7 cm (5' 8 ) 09/24/2024 1:54 PM EDT Body Mass Index 30.96 09/24/2024 1:54 PM EDT Plan of Treatment Upcoming Encounters Date Type Department Care Team (Late st Contact Info) Description 01/10/2025 1:00 PM EST Office Visit [facility] [address] [place] [phone] Sarita Wang ANP [address] [place] [address] 02/11/2025 1:00 PM EDT Clinical Support [facility] [address] [place] [phone] Jeniffer Fernandez, RN Health Maintenance Due Date Last Done Comments CT Colonography 1964 Colonoscopy 1964 Colorectal Cancer Screening 1964 FIT DNA/Cologuard 1964 FIT 1964 FOBT 1964 Sigmoidoscopy 1964 Diabetes: Foot Exam 1974 Eye Exam 1974 Alcohol/Substance Use Screening 1976 Hepatitis A Vaccines (1 of 2 - Risk 2-dose series) 1983 Zoster Vaccines (1 of 2) 2014 Pneumococcal Vaccine: Pediatrics (0 to 5 Years) and At-Risk Patients (6 to 64 Years) (2 of 2 - PCV) 12/18/2021 12/18/2020 Diabetes: Urine Protein Screening 12/08/2022 12/08/2021, 12/21/2019 COVID-19 Vaccine ( season) 2024 Diabetes: Hemoglobin A1C 12/25/2024 024, 05/29/2024, 12/08/2021, Additional history exists Depression Monitoring (PHQ-9) 03/26/2025 09/25/2024, 09/25/2024 SDOH Screening 09/12/2025 09/12/2024 Depression Screening 09/25/2025 09/25/2024, 09/25/20 24 Tobacco Screening 11/19/2025 11/19/2024 Lipid Panel 11/22/2025 11/22/2024, 07/0 12/2023, 12/08/2021 DTaP/Tdap/Td Vaccines (3 - Td or Tdap) 01/15/2034 01/15/2024, 11/23/2018 RSV Patients and Patients Aged 60 years or older (1 - 1-dose 75+ series) 2039 HIV Screening Completed 05/29/2024, 12/08/2021 Hepatitis C Screening Completed 05/29/2024 Influenza Vaccine Completed 09/24/2024, , 12/07/2019, Additional history exists HIB Vaccines Aged Out No longer eligi ble based on patient's age to complete this topic HPV Vaccines Aged Out No longer eligi ble based on patient's age to complete this topic Hepatitis B Vaccines Aged Out No long er eligible based on patient's age to complete this topic IPV Vaccines Aged Out No longer eligi ble based on patient's age to complete this topic Meningococcal Vaccine Aged Out No janelle edilberto eligible based on patient's age to complete this topic RSV under 20 months Aged Out No longe r eligible based on patient's age to complete this topic Rotavirus Vaccines Aged Out No longer eligible based on patient's age to complete this topic Procedures Procedure Name Priority Date/Time Associated Diagnosis Comments PSA, TOTAL Routine 11/22/2024 3:08 PM EST Gross hematuria VITAMIN D,25-OH,TOTAL,IA Routine 11/22/2024 3:08 PM EST Vitamin D deficiency LIPID PANEL, STANDARD Routine 11/22/2024 3:08 PM EST Dyslipidemia POCT IZABELA-14 URINE DRUG SCREEN Routine 11/19/2024 1:21 PM EST Uncomplicated opioid dependence (CMS/HCC) POCT IZABELA-14 URINE DRUG SCREEN Routine 10/22/2024 1:22 PM EST Uncomplicated opioid dependence (CMS/HCC) POCT IZABELA-14 URINE DRUG SCREEN Routine 09/27/2024 11:41 AM EDT Uncomplicated opioid dependence (CMS/HCC) US VENOUS DUPLEX LE LT Routine 09/25/2024 3:39 PM EDT URINALYSIS, COMPLETE, WITH REFLEX TO CULTURE Routine 09/24/2024 2:31 PM EDT Gross hematuria POCT GLUCOSE Routine 09/24/2024 2:11 PM EDT Hypertension associated with diabetes (CMS/HCC) (CMS/HCC) POCT GLYCATED HEMOGLOBIN, TOTAL Routine 09/24/2024 2:10 PM EDT Hypertension associated with diabetes (CMS/HCC) (CMS/HCC) HEPATITIS C AB W/REFL TO HCV RNA, QN, PCR Routine 05/29/2024 9:16 AM EDT Opioid type dependence, continuous (CMS/HCC) HIV 1/2 ANTIGEN/ANTIBODY, FOURTH GENERATION W/RFL Routine 05/29/2024 9:16 AM EDT Opioid type dependence, continuous (CMS/HCC) ALBUMIN, RANDOM URINE W/CREATININE Routine 12/08/2021 9:38 AM EST from Last 3 Months or Most Recently Relevant to Health Maintenance Results * Vitamin D, 25-Hydroxy, Total, Immunoassay (11/22/2024 3:08 PM EST) Vitamin D 25-OH Total 44.9 >30 ng/mL [facility] Comment:Health Based Referen ce Values*< 20 ng/mL Eeyskiesb40-04 ng/mL Insufficient> 30 ng/mL Sufficient*Blake CENTENO. N Engl J Med. 2007;357:266-280Care must be taken in interpreting Vitamin D results fromdifferent laboratories and methodologies. Published datademonstrated that results from patients undergoinghemodialysis may show a negative bias when tested withvarious automated 25-OH vitamin D assays when compared toLC-MS/MS.When testing samples from patients whose predominant form ofVitamin D is Vitamin D2, such as patients receiving VitaminD2 supplementation, results that are subtherapeutic shouldbe confirmed with another method such as LC-MS/MS. Blood Venous blood specimen / Unknown 11/22/2024 3:08 PM EST 11/22/2024 3:56 PM EST [facility] LAB BLOOD ORDERABLES Final Resul t [facility] [address] [place] [phone] * PSA,Total (11/22/2024 3:08 PM EST) Prostate Specific Antigen 0.62 <0.05 - 4.0 ng/mL [facility] Comment:PSA methodology: Dimitris Lee i ChemiluminescentMicroparticle Immunoassay (CMIA) Blood Venous blood specimen / Unknown 11/22/2024 3:08 PM EST 11/22/2024 3:56 PM EST Sarita Wang ANP LAB BLOOD ORDERABLES Final Resul t Performing Organization Address [facility] de Phone Number [facility] [address] [place] [phone] * (ABNORMAL) Lipid Panel, Standard (11/22/2024 3:08 PM EST) Triglycerides 164(H) <150 mg/dL [facility] Comment:Desirable Triglyceri de: less than 150 mg/dLBorderline High Triglyceride 150-199 mg/dLHigh Triglyceride: 200-499 mg/dLVery High Triglyceride: greater than or equal to 5OO mg/dL Cholesterol 141 <200 mg/dL [facility] Comment:Desirable Cholestero l: less than 200 mg/dLBorderline High Cholesterol: 200-239 mg/dLHigh Cholesterol: greater than 239 mg/dL LDL Cholesterol Calculated 70 <100 mg/dL [facility] Comment:Desirable LDL: less than 100 mg/dLNear Optimal/Above Optimal LDL: 110- 129 mg/dLBorderline High LDL: 130-159 mg/dLHigh LDL: 160-189 mg/dLVery High LDL: greater than or equal to 190 mg/dL HDL Cholesterol 39(L) >40 mg/dL [facility] Comment:Desirable HDL: great er than 40 mg/dL Note: This HDL assay may give artificially low results in patients with liver disease. Blood Venous blood specimen / Unknown 11/22/2024 3:08 PM EST 11/22/2024 3:56 PM EST Sarita Wang ANP LAB BLOOD ORDERABLES Final Resul t Performing Organization Address [facility] Co de Phone Number [facility] [address] [place] [phone] * POCT IZABELA-14 Urine Drug Screen (11/19/2024 1:21 PM EST) Only the most recent of3 resultswithin the time period is included. THC Negative Cocaine Screen, Urine Negative Opiate Screen, Urine Negative Methamphetamine Screen Urine Negative Amphetamine Screen, Urine Negative Benzodiazepines Screen, Urine Negative Barbiturate Screen, Urine Negative Methadone Screen, Urine Negative Buprenophine Screen, Urine Positive TCA, Urine Negative MDMA Urine Negative ng/mL Oxycodone Screen, Urine Negative Phencyclidine (PCP), Urine Negative Propoxyphene, Urine Negative Fentanyl, Urine Negative Urine Urine specimen obtained by clean catch procedure / Unknown 11/19/2024 1:21 PM EST us Genaro Ríos MD POINT OF CARE TEST ENTER/EDIT OR DERABLES Final Result * US VENOUS DUPLEX LE LT (09/25/2024 3:39 PM EDT) Anatomical Region Laterality Modality Abdomen Ultrasound 09/25/2024 3:39 PM EDT Narrative 09/25/2024 4:19 PM EDT ? [facility] ?[address] ?[place] [address] ? Ultrasound Report ? Signed ? Patient: Romeo Agarwal ?MR#: [id number] ?? [id number] ? : 1965 ?Acct:[id number] ? Age/Sex: 59 / M ?ADM Date: 09/25/24 ? Loc: HO.US ? Attending Dr: Sarita Wang NP ? Ordering Physician: SARITA WANG NP ?? Date of Service: 09/25/24 ?? Procedure(s): US venous duplex LE LT ?? Accession Number(s): [id number] ? cc: SARITA WANG NP ? EXAMINATION: ?? US TRIPLEX LOWER EXTREMITY, LEFT ? CLINICAL INFORMATION: ?? Swelling and pain ? COMPARISON: ?? None available. ? TECHNIQUE: ?? Color-flow triplex imaging with spectral analysis and compression ?? Doppler were performed on the left lower extremity. ? FINDINGS: ?? Respiratory variation, normal compression and augmented flow are noted ?? throughout the left lower extremity. The visualized common femoral ?? vein, superficial femoral vein, profunda femoral vein, popliteal vein ?? and midcalf peroneal and posterior tibial venous segments show no ?? evidence of deep venous thrombosis. ? There is no Damon's cyst. ? US/US venous duplex LE LT ?? IMPRESSION: ?? No evidence of deep venous thrombosis involving the left lower ?? extremity. ? Electronically signed by: ??Charly Ty MD ??09/25/2024 04:16 PM EDT RP ? Dictated By: ?Charly Ty MD ? Signed By: ?<Electronically signed by Charly Ty MD in OV> ?09/25/24 1616 ? DD/ 1539 ? TD/TT: 09/25/24 1544 ? Sock Liner: ? Procedure Note Donotuseinterpreter, Image - 09/25/[address] [address] Ultrasound Report Signed Patient: Romeo AgarwalMR#: [id number] : 1965Acct:[id number] Age/Sex: 59 / MADM Date: 09/25/24 Loc: .US Attending Dr: Sarita Wang NP Ordering Physician: SARITA WANG NP Date of Service: 09/25/24 Procedure(s): US venous duplex LE LT Accession Number(s): [id number] cc: SARITA WANG NP EXAMINATION: US TRIPLEX LOWER EXTREMITY, LEFT CLINICAL INFORMATION: Swelling and pain COMPARISON: None available. TECHNIQUE: Color-flow triplex imaging with spectral analysis and compression Doppler were performed on the left lower extremity. FINDINGS: Respiratory variation, normal compression and augmented flow are noted throughout the left lower extremity. The visualized common femoral vein, superficial femoral vein, profunda femoral vein, popliteal vein and midcalf peroneal and posterior tibial venous segments show no evidence of deep venous thrombosis. There is no Damon's cyst. US/US venous duplex LE LT IMPRESSION: No evidence of deep venous thrombosis involving the left lower extremity. Electronically signed by: Charly Ty MD 09/25/2024 04:16 PM EDT Dictated By: Charly Ty MD Signed By: <Electronically signed by Charly Ty MD in OV> 09/25/24 1616 DD/ 1539 TD/TT: 09/25/24 1544 Sock Liner: us Sarita Wang ANP IMG US PROCEDURES Edited Result - Final * Urinalysis, Complete, with Reflex to Culture (09/24/2024 2:31 PM EDT) Color Urine Yellow [facility] Appearance Urine Clear [facility] PH 5.5 5.0 - 9.0 [facility] Glucose Urine UA Negative Negative mg/dL [facility] Urine Blood Negative Negative [facility] Specific [place] - Urine 1.015 1.005 - 1.025 [facility] Urine Protein Negative Neg-Trace mg/dL [facility] Urine Ketones Negative Negative mg/dL [facility] Nitrite Urine Negative Negative [facility] Leukocyte Esterase Urine Negative Negative [facility] RBC Urine 0-2 0 - 2 /HPF [facility] Urine WBC 0-5 0 - 5 /HPF [facility] Urine Squamous Epithelial Cell 0-2 0 - 2 /HPF [facility] Urine Bacteria None Seen None Seen [facility] Hyaline Casts, Urine 0-2 0 - 2 /LPF [facility] Urine 09/24/2024 2:31 PM EDT 09/24/2024 6:18 PM EDT Narrative [facility] - 09/24/2024 6:59 PM EDT Urine, Clean Catch us Sarita Wang ANP LAB URINE ORDERABLES Final Resul t [facility] [address] [place] [phone] * (ABNORMAL) POCT Glucose (09/24/2024 2:11 PM EDT) Glucose Blood, POC 139(A) 60 - 200 mg/dL QC Media Lot # [id number] Lot# Expiration Date Blood Capillary blood specimen / Unknown 09/24/2024 2:11 PM EDT us Sarita Wang ANP POINT OF CARE TEST ENTER/EDIT OR DERABLES Final Result * (ABNORMAL) POCT HGB A1C (09/24/2024 2:10 PM EDT) Hemoglobin A1C 7.0(A) 4.0 - 6.0 % QC Media Lot # [id number] Lot# Expiration Date [id number] Blood 09/24/2024 2:10 PM EDT [facility] POINT OF CARE TEST ENTER/EDIT OR DERABLES Final Result * Hepatitis C Antibody with Reflex to HCV, RNA, Quantitative, Real-Time PCR (05/29/2024 9:16 AM EDT) Pathologist [facility] Hepatitis C Antibody Nonreactive Nonreactive [facility] Comment:Antibodies to HCV no t detected; does not exclude early acuteHCV infection. Blood Venous blood specimen / Unknown 05/29/2024 9:16 AM EDT 05/29/2024 10:58 AM EDT Genaro Ríos MD LAB BLOOD ORDERABLES Final Resul t [facility] [address] [place] [address] [phone] * HIV-1/2 Antigen and Antibodies, Fourth Generation, with Reflexes (05/29/2024 9:16 AM EDT) Pathologist [facility] HIV AB/AG Nonreactive Nonreactive [facility] Comment:HIV-1 p24 Ag and/or HIV-1/HIV-2 Ab not detected.A test result that is nonreactive does not exclude thepossibility of exposure to or infection with HIV-1 and/orHIV-2. Nonreactive results in this assay for individualswith prior exposure to HIV-1 and/or HIV-2 may be due toantigen and antibody levels that are below the limit ofdetection of this assay.The [employer] HIV Ag/Ab Combo assay result andsupplemental assay results should be interpreted inconjunction with the patient's clinical presentation,history and other laboratory results. If the results areinconsistent with clinical evidence, additional testing issuggested to confirm the result. Blood Venous blood specimen / Unknown 05/29/2024 9:16 AM EDT 05/29/2024 10:58 AM EDT Genaro Ríos MD LAB BLOOD ORDERABLES Final Resul t [facility] [address] [place] [phone] * ALBUMIN, RANDOM URINE W/CREATININE (12/08/2021 9:38 AM EST) Microalbumin Urine 0.8 See Note: mg/dL [facility] Comment: Reference Range: ?? Reference Range Not established Microalb/Creat Ratio 6 <30 mcg/mg creat [facility] Comment: ?? The ADA defines abnormalities in albumin excretion as follows: ?? Albuminuria Category ?Result (mcg/mg creatinine) ?? Normal to Mildly increased ?? <30 Moderately increased ? 30-299 ?? Severely increased ? > OR = 300 ?? The ADA recommends that at least two of three specimens collected within a 3-6 month period be abnormal before considering a patient to be within a diagnostic category. Creatinine, Urine 138 20 - 320 mg/dL [facility] 12/08/2021 9:38 AM EST us Sarita WELSH LAB URINE ORDERABLES Final Resul t Performing Organization Address City/[facility] de Phone Number [facility] [address] from Last 3 Months or Most Recently Relevant to Health Maintenance Insurance [facility] C3 Care Teams Slab Puller Relationship Specialty Start Date End Date Sarita Wang ANP [address] [place] [phone] PCP - General Family Medicine 12/07/19
--- OUTSIDE RECORDS SUMMARY | 2024-12-24 19:38 | XMS_ITS | Encounter Summary ---
Author Organization [facility] Address [address] [facility] 7t [place] [address] Care Team Providers Care Voicer Name Role Phone Lizzette Lacey Primary Care Provider [phone] Encounter Details Date Type Department Care Team (Late st Contact Info) Description 02/02/2023 Orders Only [facility] [address] [place] [address] Odalis Kitchen LPN Social History Tobacco Use [...] Description 01/10/2025 1:00 PM EST Office Visit [address] [address] Lizzette Lacey ANP [address] [place] [phone] 02/11/2025 1:00 PM EDT Clinical Support [facility] [address] [place] [phone] Jeniffer Fernandez RN documented as of this encounter Visit Diagnoses Not on filedocumented in this encounter Care Teams Voicer Relationship Specialty Start Date End Date Lizzette Lacey ANP [address] [place] [phone] PCP - General Family Medicine 12/07/19 documented as of this encounter
== END 2024-12-24 16:07 | disposition home or self-care (01) ==
PROVIDERS: PCP Nurse Practitioner Primary Care
DX: G56.03 Carpal tunnel syndrome, bilateral upper limbs (principal); G56.23 Lesion of ulnar nerve, bilateral upper limbs
CPT/HCPCS: 99204

== ENCOUNTER → 2024-12-24 15:44 | Outpatient (BNVA) | payer MEDICAID, SELFPAY | PROVIDERS: PCP Nurse Practitioner Primary Care | DX: G56.03 Carpal tunnel syndrome, bilateral upper limbs (principal); G56.23 Lesion of ulnar nerve, bilateral upper limbs | CPT/HCPCS: 99212 ==

== ENCOUNTER 2025-09-23 13:31 | Outpatient (REF) | payer MEDICAID, SELFPAY ==
--- OUTSIDE RECORDS SUMMARY | 2025-09-23 13:00 | XMS_ITS | Encounter Summary ---
Author Organization [employer] Address [address] [facility] [address]t [place] [address] Care Team Providers Care Supervisor [employer] Name Role Phone Lizzette Lacey ANITHA Primary Care Provider [phone] Reason for Visit * Reason Comments OBAT Encounter Details Date Type Department Care Team (Latest Contact Info) Description 09/23/2025 1:00 PM EDT Office Visit [facility] MEDICINE [address] [place], [place] [phone] Genaro Ríos MD [address] [place], [place] [phone] Uncomplicated opioid dependence (CMS/HCC) (HCC) (Primary Dx) Social History Tobacco Use Types Packs/Day Years Used Date Smoking Tobacco: Every Day Cigarettes Smokeless Tobacco: Never Depression Answer Date Recorded Patient Health Questionnaire-9 Score 16 01/10/2025 Patient Health Questionnaire-9 Score 16 01/10/2025 Last PHQ-9: Questionnaire Data Not on file 0 01/10/2025 Housing Stability Answer Date Recorded What is your housing situation today? I do not have housing (Staying with others, in a hotel, in a fdc, living outside on the street, on a beach, in a car, or in a park 12/27/[address] you li ve. Do you have problems with any of the following? None of the above 12/27/2024 Food Insecurity Answer Date Recorded Within the past 12 months, y ou worried that your food would run out before you got money to buy more: Often true 12/27/2024 Within the past 12 months,th e food you bought just didn't last and you didn't have enough money to get more: Often true Transportation Answer Date Recorded In the past [...] Answer Date Recorded Patient Health Questionnaire-2 Score 5 01/10/2025 Internet Access Answer Date Recorded Internet Access [...] Care Team (Late st Contact Info) Description 11/18/2025 1:00 PM EST Office Visit [facility] MED[facility] [address] [place], [place] [phone] Genaro Ríos MD [address] [place] [address] documented as of this encounter Procedures Procedure Name Priority Date/Time Associated Diagnosis Comments POCT IZABELA-14 URINE DRUG SCREEN Routine 09/23/2025 1:20 PM EDT Uncomplicated opioid dependence (CMS/HCC) (HCC) documented in this encounter Results * (ABNORMAL) POCT IZABELA-14 Urine Drug Screen (09/23/2025 1:20 PM EDT) THC Negative Negative Cocaine Screen, Urine Negative Negative Opiate Screen, Urine Negative Negative Methamphetamine Screen Urine Negative Negative Amphetamine Screen, Urine Negative Negative Benzodiazepines Screen, Urine Negative Negative Barbiturate Screen, Urine Negative Negative Methadone Screen, Urine Negative Negative Buprenophine Screen, Urine Positive(A) Negative TCA, Urine Negative Negative MDMA Urine Negative Negative ng/mL Oxycodone Screen, Urine Negative Negative Phencyclidine (PCP), Urine Negative Negative Fentanyl, Urine Negative Negative Urine Urine specimen obtained by clean catch procedure / Unknown 09/23/2025 1:20 PM EDT Genaro Ríos MD POINT OF CARE TEST ENTER/EDIT OR DERABLES Final Result documented in this encounter Visit Diagnoses Diagnosis Uncomplicated opioid dependence (CMS/HCC) (HCC)- Primary documented in this encounter Additional Health Concerns Assessment Noted Time PHQ-9 Depression Total Score: 16 02/2 025 1:35 PM EST documented as of this encounter Care Teams Supervisor [employer] Relationship Specialty Start Date End Date Lizzette Lacey ANP [address] [place] [phone] PCP - General Family Medicine 12/07/19 documented as of this encounter
[2025-09-23 16:32] LABS: Alanine Aminotransferase 24 U/L (0-40); Albumin Level 4.4 g/dL (3.5-5.0); Alkaline Phosphatase 56 U/L (39-117); Anion Gap 12 (12-20); Aspartate Amino Transferase 23 U/L (5-37); Blood Urea Nitrogen 12 mg/dL (9-16); Calcium 9.1 mg/dL (8.4-10.2); Carbon Dioxide 28 mmol/L (22-29); Chloride 106 mmol/L (96-108); Estimated Glomerular Filt Rate > 60; Potassium 3.9 mmol/L (3.3-5.1); Sodium 142 mmol/L (135-145); Total Protein 6.9 g/dL (6.5-8.0)
--- OUTSIDE RECORDS SUMMARY | 2025-09-23 17:11 | XMS_ITS | Encounter Summary ---
Author Organization [employer] Address [address] [facility] [address] [address] [place] [address] Care Team Providers Care Jewelry Inspector Name Role Phone Lizzette Lacey Primary Care Provider [phone] Encounter Details Date Type Department Care Team (Latest Contact Info) Description 09/23/2025 Travel Social History Tobacco Use Types Packs/Day Years [...] with others, in a hotel, in a custodial, living outside on the street, on a [...] Description 11/18/2025 1:00 PM EST Office Visit [facility] [address] [place] [address] Genaro Ríos MD [address] [place] [address] documented as of this encounter Visit Diagnoses Not on filedocumented in this encounter Additional Health Concerns Assessment Noted Time PHQ-9 Depression Total Score: 16 025 1:35 PM EST documented as of this encounter Care Teams Jewelry Inspector Relationship Specialty Start Date End Date Lizzette Lacey ANP [address] [place] [phone] PCP - General Family Medicine 12/07/19 documented as of this encounter
--- OUTSIDE RECORDS SUMMARY | 2025-09-23 17:11 | XMS_ITS | Encounter Summary ---
Author Organization [employer] [facility] Address [address] [place] [address] 7t [place] [address] Care Team Providers Care Arabic Teacher Name Role Phone Lizzette Lacey Primary Care Provider [phone] Encounter Details Date Type Department Care Team (Late st Contact Info) Description 11/09/2022 Orders Only [facility] [address] [place] [phone] Genie Jimenez LPN Social History Tobacco Use [...] Description 11/18/2025 1:00 PM EST Office Visit [facility] [address] [place] [phone] Genaro Ríos MD [address] [place] [address] documented as of this encounter Visit Diagnoses Not on filedocumented in this encounter Care Teams Arabic Teacher Relationship Specialty Start Date End Date Lizzette Lacey ANP [address] [place] [address] PCP - General Family Medicine 12/07/19 documented as of this encounter
--- OUTSIDE RECORDS SUMMARY | 2025-09-23 17:11 | XMS_ITS | Encounter Summary ---
Author Organization [employer] Address [address] [facility] [place] [address] Care Team Providers Care Exceptional Student Education Teacher Name Role Phone Lizzette Lacey Primary Care Provider [phone] Reason for Visit * Reason Onset Date Comments Med Refill 09/19/2025 Encounter Details Date Type Department Care Team ([facility] st Contact Info) Description 09/19/2025 Refill [facility] [address] [place] [address] Jeniffer Fernandez RN Uncomplicated opioid dependence (CMS/HCC) (HCC) Social History Tobacco Use Types Packs/Day Years [...] with others, in a hotel, in a half-way, living outside on the street, on a [...] Description 11/18/2025 1:00 PM EST Office Visit [facility] [address] [place] [phone] Genaro Ríos MD [address] [place] [address] documented as of this encounter Visit Diagnoses Diagnosis Uncomplicated opioid dependence (CMS/HCC) (HCC) documented in this encounter Additional Health Concerns Assessment Noted Time PHQ-9 Depression Total Score: 16 025 1:35 PM EST documented as of this encounter Care Teams Exceptional Student Education Teacher Relationship Specialty Start Date End Date Lizzette Lacey ANP [address] [place] [phone] PCP - General Family Medicine 12/07/19 documented as of this encounter
--- OUTSIDE RECORDS SUMMARY | 2025-09-23 17:11 | XMS_ITS | Clinical Summary ---
Author Organization [employer] Address [address] [facility] 7t [place] [address] Care Team Providers Care Site Safety Coordinator Name Role Phone Lizzette Lacey Primary Care Provider Allergies Active Allergy Reactions Criticality Noted Date Comments Shellfish Allergy 08/11/2021 Medications * This document contains information received from the source organization and may not represent a complete record from that organization. fluticasone (Flonase) 50 MCG/ACT nasal sprayIndications: Non-seasonal allergic rhinitis due to other allergic trigger USE 2 SPRAYS IN EACH NOSTRIL EVERY DAY 48 g 1 02/03/20 23 Active buprenorphine-nal oxone (Suboxone) 12-3 MG per sublingual filmIndications:O pioid type dependence, continuous (CMS/HCC) (HCC) Place 1 Film under the tongue Once per day for 7 days. Do not start before May 24, 2024. 7 Film 05/24/20 24 Active Blood Glucose Monitoring Suppl (FreeStyle [place] Lite) w/Device kitIndications:Ty pe 2 diabetes mellitus without complication, without long-term current use of insulin (HCC) Use to test blood sugar 3 times daily 1 kit 06/21/20 24 Active Alcohol Swabs (Alcohol Prep) 70 % padsIndications:T ype 2 diabetes mellitus without complication, without long-term current use of insulin (HCC) USE DIRECTED TO TEST BLOOD SUGAR THREE TIMES DAILY 100 each 5 11/07/20 24 Active TRUEplus Lancets 33G miscIndications:T ype 2 diabetes mellitus without complication, without long-term current use of insulin (HCC) USE DIRECTED TO TEST BLOOD SUGAR THREE TIMES DAILY 100 each 5 11/07/20 24 Active prazosin (Minipress) 1 MG capsuleIndication s:Nightmare TAKE 1 TO 2 CAPSULES BY MOUTH AT BEDTIME 90 capsule 1 11/16/20 24 Active olmesartan-hydroC HLOROthiazide (BENIcar HCT) 20-12.5 MG tabletIndications :Hypertension associated with diabetes (HCC) Take 1 tablet by mouth Once per day. 90 tablet 3 01/10/20 25 2025 Active metFORMIN XR (Glucophage-XR) 500 MG 24 hr tabletIndications :Hypertension associated with diabetes (HCC) Take 2 tablets (1,000 mg) by mouth with breakfast and with evening meal. Do not crush, chew, or split. 360 tablet 1 01/10/20 25 Active psyllium (Metamucil Free & Natural) 43 % powderIndications :Constipation, unspecified constipation type 1 tsp TID in water, increase as tolerated up to 1 TBL twice daily 538 g 5 02/12/20 25 Active Aspirin Low Dose 81 MG EC tabletIndications :Cardiovascular event risk,Dyslipidemia TAKE 1 TABLET BY MOUTH EVERY DAY 90 tablet 1 04/04/20 25 Active atorvastatin (Lipitor) 20 MG tabletIndications :Hyperlipidemia, unspecified hyperlipidemia type TAKE 1 TABLET BY MOUTH EVERY DAY 90 tablet 1 07/01/20 25 Active famotidine (Pepcid) 20 MG tabletIndications :Heartburn TAKE 1 TABLET BY MOUTH ONCE DAILY NEEDED FOR HEARTBURN 90 tablet 1 07/01/20 25 Active Buprenorphine HCl-Naloxone HCl (Suboxone) 8-2 MG SL filmIndications:U ncomplicated opioid dependence (CMS/HCC) ([facility]) Place 1 Film under the tongue 2 times daily. 56 Film 2 09/19/20 25 2025 Active Buprenorphine HCl-Naloxone HCl (Suboxone) 8-2 MG SL filmIndications:U ncomplicated opioid dependence (CMS/HCC) ([facility]) Place 1 Film under the tongue 2 times daily. 56 Film 2 07/02/20 25 2024 Discontinued(R eorder (will not trigger notification to Pharmacy)) Active Problems Problem Noted Date Diagnosed Date Screen for colon cancer 02/07/2025 Overview (02/07/2025): CRC screening - he reports he got c-scope in 2019 when he was incarcerated in [place] (that residential has since closed). He was there [phone]. We will try to request these records. He does have constipation and requests fiber supplement. Hypertension associated with diabetes 01/10/2025 Ulnar neuropathy of both upper extremities 12/05 Bilateral carpal tunnel syndrome 12/05/2024 Anxiety 06/21/2024 Assessment & Plan (09/25/2024 9:38 AM EDT): During IB Consult Romeo presenting with excessive worry/anxiety, difficulty [...] Romeo will continue OP therapy services with [facility] (his next appt will be on 09/26); pt will request referral for psychiatry within [facility]. clinician will be available if needed during [...] concern, employment concern, and being released from detention two months ago. Romeo is having a [...] for MH services. He prefers to utilize [facility]/ [place] /OP clinic for walk-in appointments and follow-up with clinician during next medical appointment. PLAN: (check all that apply) New/Additional Services needed On-site non-integrated services Off-site services for Behavioral Health Integration Plan Internal Follow up with [facility] External Self-referred to [facility]/[place] for their OP Clinic Patient Self Plan Patient to utilize skills provided in intervention , Patient [facility] team as needed, Comply with medication , Patient to engage in OP BH therapy , and Patient to reach out to [facility] as needed Adjustment disorder with depressed mood [...] concern, employment concern, and being released from detention two months ago. Romeo carries a diagnosis for Substance Use Disorder and is currently engaged with OBAT groups at [facility]. Romeo lives in a residential program with [place]. Pt was able to connect with [facility]/[place] and requested MH services (OP therapy and medication management). During today's consult, Romeo was engaged with active, reflective listening and validation of emotions. Reviewed and assessed for risk, current stressors and protective factors. Romeo was given different options for MH services. Romeo will continue services with [facility], OBAT and [facility]. clinician will be available if needed during next medical appointment. PLAN: (check all that apply) Continue with current services (defined as services in the past 12 months) Behavioral Health Integration Plan Patient Self Plan Patient to utilize skills provided in intervention , Patient to [facility] team as needed, Comply with medication , Patient to engage in OP BH therapy , and Patient to reach out to [facility] as needed. Pt followed recommendations made during last visit and requested intake appointment at [facility]. He is now connected with therapist and psychiatry will follow services within [facility] per patient's report. Assessment & Plan (06/26/2024 [...] concern, employment concern, and being released from detention two months ago. Romeo is having a [...] options for services. He prefers to utilize [facility] /OP clinic for walk-in appointments and follow-up with clinician during next medical appointment. PLAN: (check all that apply) New/Additional Services needed On-site non-integrated services Off-site services for Behavioral Health Integration Plan Internal Follow up with [facility] External Self-referred to [facility] for their OP Clinic Patient Self Plan Patient to utilize skills provided in intervention , Patient to reach out to [facility] team as needed, Comply with medication , Patient to engage in OP therapy , and Patient to reach out to [facility] as needed Opioid dependence, uncomplicated ([facility]/HCC) 05/14 Assessment & Plan (06/26/2024 3:19 PM EDT): [...] concern, employment concern, and being released from detention two months ago. Romeo is having a [...] options for services. He prefers to utilize [facility]/ [place] /OP clinic for walk-in appointments and follow-up with clinician during next medical appointment. PLAN: (check all that apply) New/Additional Services needed On-site non-integrated services Off-site services for Behavioral Health Integration Plan Internal Follow up with [facility] External Self-referred to [facility]/[place] for their OP Clinic Patient Self Plan Patient to utilize skills provided in intervention , Patient to reach out to [facility] team as needed, Comply with medication , Patient to engage in OP therapy , and Patient to reach out to [facility] as needed Tobacco dependence 05/14/2024 Type 2 diabetes mellitus wit hout complication, without long-term current use of insulin 05/14/2024 Hypertension 05/14/2024 Encounters Date Type Department Care Team Description 09/23/2025 1:00 PM EDT Office Visit [facility] [address] [place] [address] Genaro Ríos MD Uncomplicated opioid dependence (CMS/HCC) (HCC) (Primary Dx) 09/23/2025 Orders Only [facility] [address] [place] [address] Genaro Ríos MD 09/23/2025 Travel 09/19/2025 Refill [facility] [address] [place] [address] Jeniffer Fernandez RN Uncomplicated opioid dependence ([facility]) ([facility]) 07/30/2025 Telephone [facility] [address] [place] [address] Lizzette Lacey ANP November recall 07/02/2025 3:00 PM EDT Office Visit [facility] [address] [place] [address] Genaro Ríos MD Uncomplicated opioid dependence ([facility]) 07/02/2025 Travel 07/01/2025 Refill [facility] [address] [place] [address] Jeniffer Fernandez RN Uncomplicated opioid dependence ([facility]) 07/01/2025 Telephone [facility] [address] [place] [address] Lizzette Lacey ANP 06/30/2025 Refill [facility] [address] [place] [address] Lizzette Lacey ANP Hyperlipidemia, unspecified hyperlipidemia type; Heartburn 06/28/2025 Telephone [facility] [address] [place] [address] Lizzette Lacey ANP chart prep 06/25/2025 Refill [facility] [address] [place] [address] Jeniffer Fernandez RN Uncomplicated opioid dependence ([facility]) 06/24/2025 Refill [facility] [address] [place] [address] Genaro Ríos MD Uncomplicated opioid dependence ([facility]) from Last 3 Months Immunizations Immunization Administration Dates Next Due Influenza injectable quadriv alent IIV4 with preservative 12/07/2019,11/23/2018 Influenza injectable quadrivalent preservative f ree 12/18/2020 Influenza, IIV3, injectable 11/23/2018 Influenza, seasonal, injectable, preservative fr ee 09/24/2024 Pneumococcal Conjugate PCV 20 01/10/2025 Pneumococcal Polysaccharide PPSV23 12/18/2020 Tdap 01/15/2024,11/23/2018 Social [...] with others, in a hotel, in a penitentiary, living outside on the street, on a [...] Sign Reading Time Taken Comments Blood Pressure 109/74 02/07/2025 1:44 PM EDT Pulse 103 02/07/2025 1:44 PM EDT Temperature 36.4 C (97.6 F) 02/07/2025 1:44 PM EDT Respiratory Rate 12 02/07/2025 1:44 PM EDT Oxygen Saturation 97% 02/07/2025 1:44 PM EDT Inhaled Oxygen Concentration - - Weight 89 kg (196 lb 3.2 oz) 02/07/2025 1:44 PM EDT Height 172.7 cm (5' 8 ) 02/07/2025 1:44 PM EDT Body Mass Index 29.83 02/07/2025 1:44 PM EDT Plan of Treatment Upcoming Encounters Date Type Department Care Team (Late st Contact Info) Description 11/18/2025 1:00 PM EST Office Visit [facility] [address] [place] [address] Genaro Ríos MD [address] [place] [address] Health Maintenance Due Date Last Done Comments CT Colonography 1964 Colonoscopy 1964 Colorectal Cancer Screening 1964 FIT DNA/Cologuard 1964 FIT 1964 FOBT 1964 Sigmoidoscopy 1964 Disability Screening 1964 Eye Exam 1974 Zoster Vaccines (1 of 2) 2014 Diabetes: Urine Protein Screening 12/08/2022 12/08/2021, 12/21/2019 Diabetes: Hemoglobin A1C 04/09/2025 025, 09/24/2024, 05/29/2024, Additional history exists Depression Monitoring 07/10/2025 01/10/2025, 025 COVID-19 Vaccine ( season) 2025 05/05/2021, 03/31/2021 Influenza Vaccine (#1) 2025 , 12/18/2020, 12/07/2019, Additional history exists Lipid Panel 11/22/2025 11/22/2024, 07/0 12/2023, 12/08/2021 SDOH Screening 12/27/2025 12/27/2024 Alcohol/Substance Use Screening 01/10/2026 01/10/2025 Diabetes: Foot Exam 01/10/2026 01/10/2025, Tobacco Screening 09/23/2026 09/23/2025 DTaP/Tdap/Td Vaccines (3 - Td or Tdap) 01/15/2034 01/15/2024, 11/23/2018 RSV Patients and Patients Aged 60 years or older (1 - 1-dose 75+ series) 2039 HIV Screening Completed 05/29/2024, 12/08/2021 Hepatitis C Screening Completed 05/29/2024 Pneumococcal Vaccine: 50+ Years Completed 01/10/2025, 12/18/2020 HIB Vaccines Aged Out No longer eligi ble based on patient's age to complete this topic HPV Vaccines Aged Out No longer eligi ble based on patient's age to complete this topic Hepatitis A Vaccines Aged Out No long er eligible based on patient's age to complete this topic Hepatitis B Vaccines Aged Out No long er eligible based on patient's age to complete this topic IPV Vaccines Aged Out No longer eligi ble based on patient's age to complete this topic Meningococcal B Vaccine Aged Out No l onger eligible based on patient's age to complete [...] Procedure Name Priority Date/Time Associated Diagnosis Comments HEPATIC FUNCTION PANEL Routine 09/23/2025 1:43 PM EDT BASIC METABOLIC PANEL Routine 09/23/2025 1:43 PM EDT Hypertension associated with diabetes (HCC) POCT IZABELA-14 URINE DRUG SCREEN Routine 09/23/2025 1:20 PM EDT Uncomplicated opioid dependence (CMS/HCC) (HCC) POCT GLYCATED HEMOGLOBIN, TOTAL Routine 01/10/2025 1:13 PM EST Type 2 diabetes mellitus with hyperlipidemia (CMS/HCC) (CMS/HCC) LIPID PANEL, STANDARD Routine 11/22/2024 3:08 PM EST Dyslipidemia HEPATITIS C AB W/REFL TO HCV RNA, QN, PCR Routine 05/29/2024 9:16 AM EDT Opioid type dependence, continuous (CMS/HCC) HIV 1/2 ANTIGEN/ANTIBODY, FOURTH GENERATION W/RFL Routine 05/29/2024 9:16 AM EDT Opioid type dependence, continuous (CMS/HCC) ALBUMIN, RANDOM URINE W/CREATININE Routine 12/08/2021 9:38 AM EST from Last 3 Months or Most Recently Relevant to Health Maintenance Results * Hepatic Function Panel (09/23/2025 1:43 PM EDT) Bilirubin, Total 0.2 0.0 - 1.0 mg/dL [facility] Bilirubin, Direct <0.2 0.0 - 0.5 mg/dL [facility] Aspartate Amino Transferase 23 5 - 37 U/L [facility] Alanine Aminotransferase 24 0 - 40 U/L [facility] Total Protein 6.9 6.5 - 8.0 g/dL [facility] Albumin Level 4.4 3.5 - 5.0 g/dL [facility] Alkaline Phosphatase 56 39 - 117 U/L [facility] 09/23/2025 1:43 PM EDT 09/23/2025 4:07 PM EDT us Genaro Ríos MD LAB BLOOD ORDERABLES Final Resul t [facility] [address] [place] [address] [phone] * (ABNORMAL) Basic Metabolic Panel (09/23/2025 1:43 PM EDT) Sodium 142 135 - 145 mmol/L [facility] Potassium 3.9 3.3 - 5.1 mmol/L [facility] Chloride 106 96 - 108 mmol/L [facility] Carbon Dioxide 28 22 - 29 mmol/L [facility] Anion Gap 12 12 - 20 [facility] Urea Nitrogen (BUN) 12 9 - 16 mg/dL [facility] Creatinine, Serum 0.79 0.5 - 1.4 mg/dL [facility] Estimated Glomerular Filt Rate >60 [facility] Comment:Chronic Kidney Disea se: Estimated GFR < 60 mL/min/[id number] Kidney Disease: Estimated GFR < 15 mL/min/1.73m2 Glucose 125(H) 60 - 115 mg/dL [facility] Calcium 9.1 8.4 - 10.2 mg/dL [facility] Blood Venous blood specimen / Unknown 09/23/2025 1:43 PM EDT 09/23/2025 4:07 PM EDT Lizzette WELSH LAB BLOOD ORDERABLES Final Resul t [facility] [address] [place] [phone] * (ABNORMAL) POCT IZABELA-14 Urine Drug Screen [...] Final Result * (ABNORMAL) POCT HGB A1C (01/10/2025 1:13 PM EST) Hemoglobin A1C 8.3(A) 4.0 - 6.0 % QC Media Lot # [id number] Lot# Expiration Date Blood 01/10/2025 1:13 PM EST Lizzette Lacey ANP POINT OF CARE TEST ENTER/EDIT OR DERABLES Final Result * (ABNORMAL) Lipid Panel, Standard (11/22/2024 3:08 PM EST) Triglycerides 164(H) <150 mg/dL [facility] Comment:Desirable Triglyceri de: less than 150 mg/dLBorderline High Triglyceride 150-199 mg/dLHigh Triglyceride: 200-499 mg/dLVery High Triglyceride: greater than or equal to 5OO mg/dL Cholesterol 141 <200 mg/dL [facility] Comment:Desirable Cholestero l: less than 200 mg/dLBorderline High Cholesterol: 200-239 mg/dLHigh Cholesterol: greater than 239 mg/dL LDL Cholesterol Calculated 70 <100 mg/dL [facility] Comment:Desirable LDL: less than 100 mg/dLNear Optimal/Above Optimal LDL: 110- 129 mg/dLBorderline High LDL: 130-159 mg/dLHigh LDL: 160-189 mg/dLVery High LDL: greater than or equal to 190 mg/dL HDL Cholesterol 39(L) >40 mg/dL [facility] Comment:Desirable HDL: great er than 40 mg/dL Note: This HDL assay may give artificially low results in patients with liver disease. Blood Venous blood specimen / Unknown 11/22/2024 3:08 PM EST 11/22/2024 3:56 PM EST Lizzette Lacey [facility] LAB BLOOD ORDERABLES Final Resul t [facility] [address] [place], [place] [phone] * Hepatitis C Antibody with Reflex to HCV, RNA, Quantitative, Real-Time PCR (05/29/2024 9:16 AM EDT) Hepatitis C Antibody Nonreactive Nonreactive [facility] Comment:Antibodies to HCV no t detected; does not exclude early acuteHCV infection. Blood Venous blood specimen / Unknown 05/29/2024 9:16 AM EDT 05/29/2024 10:58 AM EDT us Genaro Ríos MD LAB BLOOD ORDERABLES Final Resul t Performing Organization Address [facility] Co de Phone Number [facility] [address] [place] [phone] * HIV-1/2 Antigen and Antibodies, Fourth Generation, with Reflexes (05/29/2024 9:16 AM EDT) HIV AB/AG Nonreactive Nonreactive [facility] Comment:HIV-1 p24 Ag and/or HIV-1/HIV-2 Ab not detected.A test result that is nonreactive does not exclude thepossibility of exposure to or infection with HIV-1 and/orHIV-2. Nonreactive results in this assay for individualswith prior exposure to HIV-1 and/or HIV-2 may be due toantigen and antibody levels that are below the limit ofdetection of this assay.The [employer] HIV Ag/Ab Combo assay result andsupplemental assay results should be interpreted inconjunction with the patient's clinical presentation,history and other laboratory results. If the results areinconsistent with clinical evidence, additional testing issuggested to confirm the result. Blood Venous blood specimen / Unknown 05/29/2024 9:16 AM EDT 05/29/2024 10:58 AM EDT us Genaro Ríos MD LAB BLOOD ORDERABLES Final Resul t Performing Organization Address [facility] Co de Phone Number [facility] [address] [place] [phone] * ALBUMIN, RANDOM URINE W/CREATININE (12/08/2021 9:38 AM EST) Microalbumin Urine 0.8 See Note: mg/dL [facility] Comment: Reference Range: Reference Range Not established Microalb/Creat Ratio 6 <30 mcg/mg creat [facility] Comment: The ADA defines abnormalities in albumin excretion as follows: Albuminuria Category Result (mcg/mg creatinine) Normal to Mildly increased <30 Moderately increased 30-299 Severely increased > OR = 300 The ADA recommends that at least two of three specimens collected within a 3-6 month period be abnormal before considering a patient to be within a diagnostic category. Creatinine, Urine 138 20 - 320 mg/dL [facility] 12/08/2021 9:38 AM EST Lizzette WELSH LAB URINE ORDERABLES Final Resul t [facility] [address] from Last 3 Months or Most Recently Relevant to Health Maintenance Insurance [facility] C3 Care Teams Site Safety Coordinator Relationship Specialty Start Date End Date Lizzette Lacey ANP [address] [place] [phone] PCP - General Family Medicine 1/10/20
--- OUTSIDE RECORDS SUMMARY | 2025-09-23 17:11 | XMS_ITS | Encounter Summary ---
Author Organization [employer] Address [address] [facility] [address] [place] [address] Care Team Providers Care Sheet Metal Layout Mechanic Name Role Phone Lizzette Lacey AINTHA Primary Care Provider [phone] Reason for Visit * Reason Comments Med Refill Encounter Details Date Type Department Care Team ([facility] st Contact Info) Description 06/24/2025 Refill [facility] [address] [place], [place] [phone] Genaro Ríos MD [address] [place], [place] [phone] Uncomplicated opioid dependence (CMS/HCC) Social History Tobacco [...] with others, in a hotel, in a prison, living outside on the street, on a [...] Description 11/18/2025 1:00 PM EST Office Visit [facility] [address] [place] [address] Genaro Ríos MD [address] [place] [address] documented as of this encounter Visit Diagnoses Diagnosis Uncomplicated opioid dependence (CMS/HCC) (HCC) documented in this encounter Additional Health Concerns Assessment Noted Time PHQ-9 Depression Total Score: 16 025 1:35 PM EST documented as of this encounter Care Teams Sheet Metal Layout Mechanic Relationship Specialty Start Date End Date Lizzette Lacey ANP [address] [place] [phone] PCP - General Family Medicine 12/07/19 documented as of this encounter
--- OUTSIDE RECORDS SUMMARY | 2025-09-23 17:11 | XMS_ITS | Encounter Summary ---
Author Organization [employer] Address [address] [place] [address] Care Team Providers Care Outside Industrial Sales Representative Name Role Phone Lizzette Lacey Primary Care Provider [phone] Encounter Details Date Type Department Care Team (Late st Contact Info) Description 06/20/2025 Orders Only [facility] [address] [place] [address] Jeniffer Fernandez RN Opioid dependence, uncomplicated (CMS/HCC) Social History Tobacco Use Types Packs/Day [...] t he electric, gas, oil or water [employer] threatened to shut off services in your [...] Description 11/18/2025 1:00 PM EST Office Visit [facility] [address] [place], [place] [phone] Genaro Ríos MD [address] [place], [place] [phone] Scheduled Orders Name Type Priority Associated Diagnoses Orde r Schedule Hepatic Function Panel Lab Routine Opioid dependence, uncomplicated (CMS/HCC) Expected: 06/20/2025 (Approximate), Expires: 06/20/2026 Hepatitis C Antibody with Reflex to HCV, RNA, Quantitative, Real-Time PCR Lab Routine Opioid dependence, uncomplicated (CMS/HCC) Expected: 06/20/2025 (Approximate), Expires: 06/20/2026 Syphilis Screen Lab Routine Opioid dependence, uncomplicated (CMS/HCC) Expected: 06/20/2025 (Approximate), Expires: 06/20/2026 HIV-1/2 Antigen and Antibodies, Fourth Generation, with Reflexes Lab Routine Opioid dependence, uncomplicated (CMS/HCC) Expected: 06/20/2025 (Approximate), Expires: 06/20/2026 T-SPOT .TB Lab Routine Opioid dependence, uncomplicated (CMS/HCC) Expected: 06/20/2025 (Approximate), Expires: 06/20/2026 documented as of this encounter Visit Diagnoses Diagnosis Opioid dependence, uncomplicated (CMS/HCC) (HCC) documented in this encounter Additional Health Concerns Assessment Noted Time PHQ-9 Depression Total Score: 16 025 1:35 PM EST documented as of this encounter Care Teams Outside Industrial Sales Representative Relationship Specialty Start Date End Date Lizzette Lacey ANP [address] [place] [address] PCP - General Family Medicine 12/07/19 documented as of this encounter
--- OUTSIDE RECORDS SUMMARY | 2025-09-23 17:11 | XMS_ITS | Encounter Summary ---
Author Organization [employer] [facility] Address [address] [facility] 7[address] [place] [address] Care Team Providers Care Database Design Analyst Name Role Phone Lizzette Lacey Primary Care Provider [phone] Encounter Details Date Type Department Care Team (Late st Contact Info) Description 02/02/2023 Orders Only [facility] MED & PEDS [address] [place] [address] Odalis Kitchen LPN Social History Tobacco Use [...] Description 11/18/2025 1:00 PM EST Office Visit [facility] MEDICINE [address] [place] [address] Genaro Ríos MD [address] [place] [address] documented as of this encounter Visit Diagnoses Not on filedocumented in this encounter Care Teams Database Design Analyst Relationship Specialty Start Date End Date Lizzette Lacey ANP [address] [place] [address] PCP - General Family Medicine 12/07/19 documented as of this encounter
--- OUTSIDE RECORDS SUMMARY | 2025-09-23 17:11 | XMS_ITS | Encounter Summary ---
Author Organization [employer] [facility] Address [address] [facility] 7[address] [place] [address] Care Team Providers Care Record Label Intern Name Role Phone Lizzette Lacey Primary Care Provider [phone] Encounter Details Date Type Department Care Team (Late st Contact Info) Description 04/04/2023 Orders Only [facility] CHC MED & PEDS [address] [place] [address] Odalis Kitchen LPN Social History Tobacco Use [...] Description 11/18/2025 1:00 PM EST Office Visit [facility] MEDICINE [address] [place] [address] Genaro Ríos MD [address] [place] [address] documented as of this encounter Visit Diagnoses Not on filedocumented in this encounter Care Teams Record Label Intern Relationship Specialty Start Date End Date Lizzette Lacey ANP [address] [place] [address] PCP - General Family Medicine 12/07/19 documented as of this encounter
--- OUTSIDE RECORDS SUMMARY | 2025-09-23 17:11 | XMS_ITS | Encounter Summary ---
Author Organization [employer] [facility] Address [address] [place] [address] 7 [place] [address] Care Team Providers Care Rigging Up Worker Name Role Phone Lizzette Lacey Primary Care Provider [phone] Reason for Visit * Reason Comments Med Refill Encounter Details Date Type Department Care Team (Late st Contact Info) Description 07/20/2024 Refill [facility] MEDICINE [address] [place] [address] [phone] Francheska Boyer MD [address] [place] [address] [phone] Opioid type dependence, continuous (CMS/[facility]) Social History Tobacco Use Types Packs/Day Years [...] Description 11/18/2025 1:00 PM EST Office Visit [facility] MEDICINE [address] [place] [address] [phone] Genaro Ríos MD [address] [place] [address] [phone] documented as of this encounter Visit Diagnoses Diagnosis Opioid type dependence, continuous (CMS/HCC) (HCC) Opioid type dependence, continuous documented in this encounter Additional Health Concerns Assessment Noted Time PHQ-9 Depression Total Score: 10 024 2:58 PM EDT documented as of this encounter Care Teams Rigging Up Worker Relationship Specialty Start Date End Date Lizzette Lacey ANP [address] [place] [address] PCP - General Family Medicine 12/07/19 documented as of this encounter
--- OUTSIDE RECORDS SUMMARY | 2025-09-23 17:11 | XMS_ITS | Encounter Summary ---
Author Organization [employer] Address [address] [facility] [address] [place] [address] Care Team Providers Care Cellophane Wrapping Examiner Name Role Phone Lizzette Lacey ANITHA Primary Care Provider [phone] Encounter Details Date Type Department Care Team (Late st Contact Info) Description 09/23/[address] [facility] [address] [place], [place] [phone] Genaro Ríos MD [address] [place], [place] [phone] Social History Tobacco Use Types Packs/Day Years [...] with others, in a hotel, in a skilled nursing, living outside on the street, on a [...] Description 11/18/2025 1:00 PM EST Office Visit [facility] MED[facility] [address] [place] [address] [phone] Genaro Ríos MD [address] [place] [address] documented as of this encounter Procedures Procedure Name Priority Date/Time Associated Diagnosis Comments HEPATIC FUNCTION PANEL Routine 09/23/2025 1:43 PM EDT documented in this encounter Results * Hepatic Function Panel (09/23/2025 1:43 PM EDT) Bilirubin, Total 0.2 0.0 - 1.0 mg/dL [facility] Bilirubin, Direct <0.2 0.0 - 0.5 mg/dL [facility] Aspartate Amino Transferase 23 5 - 37 U/L [facility] Alanine Aminotransferase 24 0 - 40 U/L [facility] Total Protein 6.9 6.5 - 8.0 g/dL [facility] Albumin Level 4.4 3.5 - 5.0 g/dL [facility] Alkaline Phosphatase 56 39 - 117 U/L [facility] 09/23/2025 1:43 PM EDT 09/23/2025 4:07 PM EDT us Genaro Ríos MD LAB BLOOD ORDERABLES Final Resul t [facility] [address] [place] [address] [phone] documented in this encounter Visit Diagnoses Not on filedocumented in this encounter Additional Health Concerns Assessment Noted Time PHQ-9 Depression Total Score: 16 025 1:35 PM EST documented as of this encounter Care Teams Cellophane Wrapping Examiner Relationship Specialty Start Date End Date Lizzette Lacey ANP [address] [place] [address] PCP - General Family Medicine 12/07/19 documented as of this encounter
[2025-09-24 03:33] LABS: Syphilis Screen Nonreactive (Nonreactive)
[2025-09-24 03:52] LABS: HIV Num 1 0.07 S/CO (0.00-0.99); ~HepC Num1 0.07 S/CO (0.00-0.79); ~Hepatitis C Antibody Nonreactive (Nonreactive)
[2025-09-26 17:48] LABS: TS Negative Control Passed; TS Panel A 0; TS Panel B 0; TS Positive Control Passed; TSpotTB Negative (Negative)
== END 2025-09-23 13:32 | disposition home or self-care (01) ==
LOC: HO.HHCL 13:31
PROVIDERS: Emergency Medicine; PCP Nurse Practitioner Primary Care; Visit Provider Nurse Practitioner Primary Care
DX: Z11.1 Encounter for screening for respiratory tuberculosis (principal); Z11.59 Encounter for screening for other viral diseases; Z11.4 Encounter for screening for human immunodeficiency virus [HIV]; Z11.3 Encounter for screening for infections with a predominantly sexual mode of transmission; F11.20 Opioid dependence, uncomplicated; E11.59 Type 2 diabetes mellitus with other circulatory complications; I15.2 Hypertension secondary to endocrine disorders
CPT/HCPCS: 36415; 80048; 80076; 86481; 86780; 86803; 87389